=== PATIENT | female | born 1995 | race Caucasian/White ===

== ENCOUNTER 2019-08-29 06:49 | Emergency (ER) | payer BC ==
[2019-08-29] MEDS ORDERED: Ondansetron 4 MG/2 ML SDV IVPUSH ONE (07:29)
[2019-08-29] MEDS ORDERED: Sodium Chloride 0.9% 10 ML Syringe FLUSH PRN (07:29)
[2019-08-29] MEDS ORDERED: Sodium Chloride 0.9% 2,000 ML IV STA (07:29)
[2019-08-29] MEDS ORDERED: HYDROmorphone 0.5 MG/0.5 ML Syringe IVPUSH ONE (07:30)
[2019-08-29] MEDS ORDERED: Famotidine 20 MG/2 ML SDV IVPUSH ONE (07:31)
--- NOTE | 2019-08-29 08:59 | EDM.PDOC ---
ED HPI GENERAL MEDICAL PROBLEM - General Chief Complaint: Gastrointestinal Problem Stated Complaint: VOMITING BLOOD Time Seen by Provider: 08/29/19 07:19 Source of Information: Reports: Patient History Limitations: Reports: No Limitations - History of Present Illness INITIAL COMMENTS - FREE TEXT/NARRATIVE: The patient presents with nausea, vomiting, abdominal pain, and fever. This has been going on since yesterday. She says she cannot keep anything down. She also was vomiting up some blood this morning. She has been running a fever and having a cough. She has no eaten any bad food and she has not been around anyone who is sick. She still has her gallbladder and appendix. She does not think she is . She has some loose stools but not diarrhea. She has no dysuria. Onset: Gradual Duration: Day(s): (Yesterday) Location: Reports: Abdomen Quality: Reports: Sharp Severity: Moderate Improves with: Reports: None Worsens with: Reports: None Associated Symptoms: Reports: Cough, Fever/Chills, Nausea/Vomiting. Denies: Chest Pain, Headaches, Shortness of Breath Generalized Pain Score (Numeric/FACES): 8 - Related Data Allergies Allergy/AdvReac Type Severity Reaction Status Date / Time No Known Allergies Allergy Verified 08/29/19 07:17 Home Meds: Home Meds Ondansetron [Zofran ODT] 4 mg PO Q6H PRN #20 tab.dis 08/29/19 [Rx] ED ROS GENERAL - Review of Systems Review Of Systems: See Below Constitutional: Reports: Fever, Chills HEENT: Reports: No Symptoms Respiratory: Reports: Cough. Denies: Shortness of Breath Cardiovascular: Reports: No Symptoms Endocrine: Reports: No Symptoms GI/Abdominal: Reports: Abdominal Pain, Nausea, Vomiting. Denies: Diarrhea : Reports: No Symptoms Musculoskeletal: Reports: No Symptoms ED EXAM, GI/ABD - Physical Exam Exam: See Below Exam Limited By: No Limitations General Appearance: Alert, No Apparent Distress Ears: Normal External Exam Nose: Normal Inspection Head: Atraumatic, Normocephalic Neck: Normal Inspection Respiratory/Chest: No Respiratory Distress, Lungs Clear, Normal Breath Sounds Cardiovascular: Regular Rate, Rhythm, No Edema, No Murmur GI/Abdominal Exam: Soft, No Organomegaly, No Mass, Tender (Mild generalized pain upon palpation) Course - Vital Signs Last Recorded V/S: Last Vital Signs Temp 98.6 F 08/29/19 07:15 Pulse 103 H 08/29/19 07:15 Resp 16 08/29/19 07:15 BP 133/88 08/29/19 07:15 Pulse Ox 100 08/29/19 07:15 - Orders/Labs/Meds Orders: Active Orders 24 hr Category Date Time Status Peripheral IV Care [RC] . DIRECTED Care 08/29/19 07:30 Active CULTURE URINE [RM] Stat Lab 08/29/19 09:25 Received Sodium Chloride 0.9% [Saline Flush] Med 08/29/19 07:29 Active 10 ml FLUSH ASDIRECTED PRN ED Antiemetic Medication Reflex [OM.PC] Stat Oth 08/29/19 07:30 Ordered Peripheral IV Insertion Adult [OM.PC] Stat Oth 08/29/19 07:29 Ordered Medication Orders Sodium Chloride (Saline Flush) 10 ml FLUSH ASDIRECTED PRN PRN Reason: Keep Vein Open Last Admin: 08/29/19 08:11 Dose: 10 ml Labs: Laboratory Tests 08/29/19 08/29/19 08/29/19 Range/Units 07:40 07:40 07:40 WBC 4.25 (3.98-10.04) K/mm3 RBC 5.02 (3.98-5.22) M/mm3 Hgb 15.0 (11.2-15.7) gm/dl Hct 42.3 (34.1-44.9) % MCV 84.3 (79.4-94.8) fl MCH 29.9 (25.6-32.2) pg MCHC 35.5 (32.2-35.5) g/dl RDW Std Deviation 37.7 (36.4-46.3) fL Plt Count 294 (182-369) K/mm3 MPV 9.4 (9.4-12.3) fl Neut % (Auto) 70.0 (34.0-71.1) % Lymph % (Auto) 11.3 L (19.3-51.7) % Donley % (Auto) 16.0 H (4.7-12.5) % Eos % (Auto) 1.6 (0.7-5.8) Baso % (Auto) 0.9 (0.1-1.2) % Neut # (Auto) 2.97 (1.56-6.13) K/mm3 Lymph # (Auto) 0.48 L (1.18-3.74) K/mm3 Donley # (Auto) 0.68 H (0.24-0.36) K/mm3 Eos # (Auto) 0.07 (0.04-0.36) K/mm3 Baso # (Auto) 0.04 (0.01-0.08) K/mm3 Manual Slide Review Abnormal smear Sodium 139 (136-145) mEq/L Potassium 4.0 (3.5-5.1) mEq/L Chloride 103 (98-107) mEq/L Carbon Dioxide 24 (21-32) mEq/L Anion Gap 16.0 H (5-15) BUN 8 (7-18) mg/dL Creatinine 0.7 (0.55-1.02) mg/dL Est Cr Clr Drug Dosing 90.55 mL/min Estimated GFR (MDRD) > 60 (>60) mL/min BUN/Creatinine Ratio 11.4 L (14-18) Glucose 91 (74-106) mg/dL Calcium 9.3 (8.5-10.1) mg/dL Total Bilirubin 0.5 (0.2-1.0) mg/dL AST 17 (15-37) U/L ALT 49 (14-59) U/L Alkaline Phosphatase 80 (46-116) U/L Total Protein 7.8 (6.4-8.2) g/dl Albumin 4.4 (3.4-5.0) g/dl Globulin 3.4 gm/dL Albumin/Globulin Ratio 1.3 (1-2) Lipase 171 (73-393) U/L HCG, Qual Negative (NEGATIVE) Urine Color (Yellow) Urine Appearance (Clear) Urine pH (5.0-8.0) Ur Specific [place] (1.005-1.030) Urine Protein (Negative) Urine Glucose (UA) (Negative) Urine Ketones (Negative) Urine Occult Blood (Negative) Urine Nitrite (Negative) Urine Bilirubin (Negative) Urine Urobilinogen (0.2-1.0) Ur Leukocyte Esterase (Negative) Urine RBC (0-5) /hpf Urine WBC (0-5) /hpf Ur Squamous Epith Cells (0-5) /hpf Urine Bacteria (FEW) /hpf Urine Mucus (FEW) /hpf 08/29/19 Range/Units 09:25 WBC (3.98-10.04) K/mm3 RBC (3.98-5.22) M/mm3 Hgb (11.2-15.7) gm/dl Hct (34.1-44.9) % MCV (79.4-94.8) fl MCH (25.6-32.2) pg MCHC (32.2-35.5) g/dl RDW Std Deviation (36.4-46.3) fL Plt Count (182-369) K/mm3 MPV (9.4-12.3) fl Neut % (Auto) (34.0-71.1) % Lymph % (Auto) (19.3-51.7) % Donley % (Auto) (4.7-12.5) % Eos % (Auto) (0.7-5.8) Baso % (Auto) (0.1-1.2) % Neut # (Auto) (1.56-6.13) K/mm3 Lymph # (Auto) (1.18-3.74) K/mm3 Donley # (Auto) (0.24-0.36) K/mm3 Eos # (Auto) (0.04-0.36) K/mm3 Baso # (Auto) (0.01-0.08) K/mm3 Manual Slide Review Sodium (136-145) mEq/L Potassium (3.5-5.1) mEq/L Chloride (98-107) mEq/L Carbon Dioxide (21-32) mEq/L Anion Gap (5-15) BUN (7-18) mg/dL Creatinine (0.55-1.02) mg/dL Est Cr Clr Drug Dosing mL/min Estimated GFR (MDRD) (>60) mL/min BUN/Creatinine Ratio (14-18) Glucose (74-106) mg/dL Calcium (8.5-10.1) mg/dL Total Bilirubin (0.2-1.0) mg/dL AST (15-37) U/L ALT (14-59) U/L Alkaline Phosphatase (46-116) U/L Total Protein (6.4-8.2) g/dl Albumin (3.4-5.0) g/dl Globulin gm/dL Albumin/Globulin Ratio (1-2) Lipase (73-393) U/L HCG, Qual (NEGATIVE) Urine Color Yellow (Yellow) Urine Appearance Clear (Clear) Urine pH 7.0 (5.0-8.0) Ur Specific [place] 1.025 (1.005-1.030) Urine Protein Negative (Negative) Urine Glucose (UA) Negative (Negative) Urine Ketones 2+ H (Negative) Urine Occult Blood Negative (Negative) Urine Nitrite Positive H (Negative) Urine Bilirubin Negative (Negative) Urine Urobilinogen 1.0 (0.2-1.0) Ur Leukocyte Esterase Negative (Negative) Urine RBC 0-5 (0-5) /hpf Urine WBC 0-5 (0-5) /hpf Ur Squamous Epith Cells 0-5 (0-5) /hpf Urine Bacteria Many H (FEW) /hpf Urine Mucus Few (FEW) /hpf Meds: Medications Generic Name Dose Route Start Last Admin Trade Name Freq PRN Reason Stop Dose Admin Sodium Chloride 10 ml 08/29/19 07:29 08/29/19 08:11 Saline Flush FLUSH 10 ml ASDIRECTED PRN Administration Keep Vein Open Discontinued Medications Generic Name Dose Route Start Last Admin Trade Name Freq PRN Reason Stop Dose Admin Famotidine 20 mg 08/29/19 07:31 08/29/19 08:11 Pepcid IVPUSH 08/29/19 07:32 20 mg ONETIME ONE Administration Hydromorphone HCl 0.5 mg 08/29/19 07:30 08/29/19 08:14 Dilaudid IVPUSH 08/29/19 07:31 0.5 mg ONETIME ONE Administration Sodium Chloride 2,000 mls @ 1,000 mls/hr 08/29/19 07:29 08/29/19 08:09 Normal Saline IV 08/29/19 09:28 1,000 mls/hr .BOLUS STA Administration Ondansetron HCl 4 mg 08/29/19 07:29 08/29/19 08:09 Zofran IVPUSH 08/29/19 07:30 4 mg ONETIME ONE Administration - Re-Assessments/Exams Free Text/Narrative Re-Assessment/Exam: 08/29/19 08:58 I ordered an IV NS 2L bolus, zofran 4mg IV, dilaudid 0.5mg IV, labs, and UA. Her CBC looks good. Her anion gap was elevated at 16. Her lipase is normal. 08/29/19 09:58 Her HCG is negative. Her UA shows nitrites and bacteria. I will culture it and hold treatment. She has no dysuria. Her influenza is negative. Departure - Departure Time of Disposition: 10:45 Disposition: Home, Self-Care 01 Condition: Good Clinical Impression: Gastroenteritis, Vomiting - Discharge Information *PRESCRIPTION DRUG MONITORING PROGRAM REVIEWED*: Not Applicable *COPY OF PRESCRIPTION DRUG MONITORING REPORT IN PATIENT NATACHA: Not Applicable Prescriptions: Ondansetron [Zofran ODT] 4 mg PO Q6H PRN #20 tab.dis PRN Reason: Nausea\vomiting Referrals: PCP,None [Primary Care Provider] - Kathryn Marvin PA-C [Physician Division Field Inspector] - 1 Week Forms: ED Department Discharge Additional Instructions: Drink plenty of fluids. Take zofran every 6 hours as needed for nausea and vomiting. Advance your diet as tolerated. Please return if you are worse. Sepsis Event Note - Evaluation Sepsis Screening Result: No Definite Risk - Focused Exam Vital Signs: Vital Signs Temp Pulse Resp BP Pulse Ox 08/29/19 07:15 98.6 F 103 H 16 133/88 100 Date Exam was Performed: 08/29/19 Time Exam was Performed: 10:42 - My Orders Last 24 Hours: My Active Orders 08/29/19 07:29 Sodium Chloride 0.9% [Saline Flush] 10 ml FLUSH ASDIRECTED PRN Peripheral IV Insertion Adult [OM.PC] Stat 08/29/19 07:30 Peripheral IV Care [RC] . DIRECTED ED Antiemetic Medication Reflex [OM.PC] Stat 08/29/19 09:25 CULTURE URINE [RM] Stat - Assessment/Plan Last 24 Hours: My Active Orders 08/29/19 07:29 Sodium Chloride 0.9% [Saline Flush] 10 ml FLUSH ASDIRECTED PRN Peripheral IV Insertion Adult [OM.PC] Stat 08/29/19 07:30 Peripheral IV Care [RC] . DIRECTED ED Antiemetic Medication Reflex [OM.PC] Stat 08/29/19 09:25 CULTURE URINE [RM] Stat
== END 2019-08-29 10:52 | disposition home or self-care (01) ==
LOC: JD.ED 06:49
DX: K52.9 Noninfective gastroenteritis and colitis, unspecified (principal)
CPT/HCPCS: 36415; 80053; 81001; 83690; 84703; 85025; 87086; 87088; 87186; 87804; 96361; 96374; 96375; 99284; J1170; J2405; J3490; J7030; 99283

== ENCOUNTER 2019-09-01 14:43 | Observation (INO) | payer BC ==
[2019-09-01] MEDS ORDERED: Sodium Chloride 0.9% 10 ML Syringe FLUSH PRN (15:43)
[2019-09-01] MEDS ORDERED: Metoclopramide 10 MG/2 ML SDV IVPUSH ONE (15:43)
[2019-09-01] MEDS ORDERED: HYDROmorphone 0.5 MG/0.5 ML Syringe IVPUSH ONE (15:45)
[2019-09-01] MEDS: Sodium Chloride 0.9% 2,000 ML IV STA ×2 (15:56→17:45)
[2019-09-01] MEDS ORDERED: Iopamidol 612 MG/ML 100 ML Bottle IVPUSH ONE (15:59)
[2019-09-01] MEDS ORDERED: Sodium Chloride 0.9% 10 ML Syringe FLUSH ONE (15:59)
[2019-09-01] MEDS ORDERED: cefTRIAXone 2 GM in Sodium Chloride 0.9% 100 ML IV SCH (16:00)
--- NOTE | 2019-09-01 17:11 | CT ---
CT abdomen and pelvis Technique: Multiple axial sections were obtained from above the dome of the diaphragm inferiorly through the pubic symphysis. Intravenous contrast was utilized. No oral contrast was given due to emesis. Delayed images were also obtained through the abdomen and pelvis. Comparison: No previous abdominal imaging is available. Findings: Kidneys show symmetric contrast enhancement. No hydronephrosis or mass is seen. Delayed images shows contrast excretion into nondilated ureters and contrast within the bladder. Visualized lung bases show nothing acute. Liver contains no focal abnormality. Spleen appears within normal limits. Pancreas is within normal limits. Adrenal glands show no nodule. Aorta shows no aneurysm. Gallbladder contains no calcified gallstones. No retroperitoneal adenopathy or mesenteric abnormalities are seen. Appendix is seen and is normal in size. No pelvic mass or adenopathy is seen. Small amount of free fluid is noted within the cul-de-sac believed to be physiologic. No bowel dilatation is appreciated. Bone window settings were reviewed which appear within normal limits for the patient's age. Impression: 1. No abnormality is appreciated on CT study of the abdomen and pelvis. 2. IUD is noted. 3. Small amount of fluid within the cul-de-sac which is felt to be physiologic. Diagnostic code #2 This report was dictated in [place] Standard Time
--- NOTE | 2019-09-01 17:49 | EDM.PDOC ---
ED HPI GENERAL MEDICAL PROBLEM - General Chief Complaint: Gastrointestinal Problem Stated Complaint: VOMITING Time Seen by Provider: 09/01/19 15:24 Source of Information: Reports: Patient, Family History Limitations: Reports: No Limitations - History of Present Illness INITIAL COMMENTS - FREE TEXT/NARRATIVE: The patient presents again with nausea, vomiting and abdominal pain. This started a few days ago and she was seen here by myself. Her labs looked good and she did well with fluids and zofran. Her urine had some nitrites and a few bacteria. I did a culture and that came back today. It was growing out E-coli susceptible to all antibiotics. She came back today feeling worse. She still has vomiting and nausea and abdominal pain. She has some back pain also on the right side. She has no dysuria, hematuria or diarrhea. Her urine does look orange today. She has fever and chills. She also has some cough and congestion. Onset: Gradual Duration: Day(s): Location: Reports: Abdomen, Back Quality: Reports: Sharp Severity: Moderate Improves with: Reports: None Worsens with: Reports: None Associated Symptoms: Reports: Cough, Fever/Chills, Nausea/Vomiting. Denies: Chest Pain, Headaches, Shortness of Breath Lower Back Pain Score (Numeric/FACES): 9 - Related Data Allergies Allergy/AdvReac Type Severity Reaction Status Date / Time No Known Allergies Allergy Verified 09/01/19 15:17 Home Meds: Home Meds Ondansetron [Zofran ODT] 4 mg PO Q6H PRN #20 tab.dis 08/29/19 [Rx] Past Medical History - Past Health History Medical/Surgical History: Denies Medical/Surgical History Social & Family History - Tobacco Use Smoking Status *Q: Never Smoker - Caffeine Use Caffeine Use: Reports: None - Recreational Drug Use Recreational Drug Use: No ED ROS GENERAL - Review of Systems Review Of Systems: See Below Constitutional: Reports: No Symptoms HEENT: Reports: No Symptoms Respiratory: Reports: Cough. Denies: Shortness of Breath Cardiovascular: Reports: No Symptoms Endocrine: Reports: No Symptoms GI/Abdominal: Reports: Abdominal Pain, Nausea, Vomiting. Denies: Diarrhea : Reports: No Symptoms Musculoskeletal: Reports: No Symptoms Skin: Reports: No Symptoms Neurological: Reports: No Symptoms ED EXAM, GI/ABD - Physical Exam Exam: See Below Exam Limited By: No Limitations General Appearance: Alert, No Apparent Distress Ears: Normal External Exam Nose: Normal Inspection Head: Atraumatic, Normocephalic Neck: Normal Inspection Respiratory/Chest: No Respiratory Distress, Lungs Clear, Normal Breath Sounds Cardiovascular: Regular Rate, Rhythm, No Edema, No Murmur GI/Abdominal Exam: Soft, No Mass, Tender (Moderate generalized tenderness) Back Exam: CVA Tenderness (R) Extremities: Normal Inspection Neurological: Alert, Oriented, No Motor/Sensory Deficits Course - Vital Signs Last Recorded V/S: Last Vital Signs Temp 98.3 F 09/01/19 15:14 Pulse 87 09/01/19 15:14 Resp 18 09/01/19 15:14 BP 127/86 09/01/19 15:14 Pulse Ox 98 09/01/19 15:14 Orthostatic Blood Pressure [ 118/79 Standing] Orthostatic Blood Pressure [ 116/85 Sitting] Orthostatic Blood Pressure [ 119/75 Supine] - Orders/Labs/Meds Orders: Active Orders 24 hr Category Date Time Status Peripheral IV Care [RC] . DIRECTED Care 09/01/19 15:43 Active CULTURE BLOOD [BC] Stat Lab 09/01/19 15:45 Ordered CULTURE BLOOD [BC] Stat Lab 09/01/19 15:45 Ordered Sodium Chloride 0.9% [Saline Flush] Med 09/01/19 15:43 Active 10 ml FLUSH ASDIRECTED PRN cefTRIAXone [Rocephin] 2 gm Med 09/01/19 16:00 Active Sodium Chloride 0.9% [Normal Saline] 100 ml IV Q24H Blood Culture x2 Reflex Set [OM.PC] Stat Oth 09/01/19 15:45 Ordered ED Antiemetic Medication Reflex [OM.PC] Stat Oth 09/01/19 15:43 Ordered Peripheral IV Insertion Adult [OM.PC] Stat Oth 09/01/19 15:43 Ordered Medication Orders Ceftriaxone Sodium 2 gm/ (Sodium Chloride) 100 mls @ 200 mls/hr IV Q24H [facility] Last Admin: 09/01/19 16:51 Dose: 200 mls/hr Sodium Chloride (Saline Flush) 10 ml FLUSH ASDIRECTED PRN PRN Reason: Keep Vein Open Last Admin: 09/01/19 15:59 Dose: 10 ml Labs: Laboratory Tests 01/07/20 01/07/20 01/07/20 Range/Units 16:12 16:12 16:14 WBC 5.01 (3.98-10.04) K/mm3 RBC 5.33 H (3.98-5.22) M/mm3 Hgb 15.7 (11.2-15.7) gm/dl Hct 43.8 (34.1-44.9) % MCV 82.2 (79.4-94.8) fl MCH 29.5 (25.6-32.2) pg MCHC 35.8 H (32.2-35.5) g/dl RDW Std Deviation 36.9 (36.4-46.3) fL Plt Count 270 (182-369) K/mm3 MPV 9.8 (9.4-12.3) fl Neut % (Auto) 55.5 (34.0-71.1) % Lymph % (Auto) 27.1 (19.3-51.7) % Jay % (Auto) 16.6 H (4.7-12.5) % Eos % (Auto) 0.2 L (0.7-5.8) Baso % (Auto) 0.6 (0.1-1.2) % Neut # (Auto) 2.78 (1.56-6.13) K/mm3 Lymph # (Auto) 1.36 (1.18-3.74) K/mm3 Jay # (Auto) 0.83 H (0.24-0.36) K/mm3 Eos # (Auto) 0.01 L (0.04-0.36) K/mm3 Baso # (Auto) 0.03 (0.01-0.08) K/mm3 Manual Slide Review Abnormal smear Sodium 140 (136-145) mEq/L Potassium 3.5 (3.5-5.1) mEq/L Chloride 102 (98-107) mEq/L Carbon Dioxide 21 (21-32) mEq/L Anion Gap 20.5 H (5-15) BUN 9 (7-18) mg/dL Creatinine 0.7 (0.55-1.02) mg/dL Est Cr Clr Drug Dosing 90.55 mL/min Estimated GFR (MDRD) > 60 (>60) mL/min BUN/Creatinine Ratio 12.9 L (14-18) Glucose 71 L (74-106) mg/dL Lactic Acid 1.2 (0.4-2.0) mmol/L Calcium 9.1 (8.5-10.1) mg/dL Total Bilirubin 0.5 (0.2-1.0) mg/dL AST 16 (15-37) U/L ALT 33 (14-59) U/L Alkaline Phosphatase 73 (46-116) U/L Total Protein 8.1 (6.4-8.2) g/dl Albumin 4.5 (3.4-5.0) g/dl Globulin 3.6 gm/dL Albumin/Globulin Ratio 1.3 (1-2) Lipase 134 (73-393) U/L Meds: Medications Generic Name Dose Route Start Last Admin Trade Name Fremiguel PRN Reason Stop Dose Admin Ceftriaxone Sodium 2 gm/ 100 mls @ 200 mls/hr 09/01/19 16:00 09/01/19 16:51 Sodium Chloride IV 200 mls/hr Q24H KENDAL Administration Sodium Chloride 10 ml 09/01/19 15:43 09/01/19 15:59 Saline Flush FLUSH 10 ml ASDIRECTED PRN Administration Keep Vein Open Discontinued Medications Generic Name Dose Route Start Last Admin Trade Name Gem PRN Reason Stop Dose Admin Hydromorphone HCl 0.5 mg 09/01/19 15:45 09/01/19 15:58 Dilaudid IVPUSH 09/01/19 15:46 0.5 mg ONETIME ONE Administration Sodium Chloride 2,000 mls @ 1,000 mls/hr 09/01/19 15:43 09/01/19 17:45 Normal Saline IV 09/01/19 17:42 1,000 mls/hr .BOLUS STA Administration Iopamidol 100 ml 09/01/19 15:59 09/01/19 16:34 Isovue-300 (61%) IVPUSH 09/01/19 16:00 100 ml ONETIME ONE Administration Metoclopramide HCl 10 mg 09/01/19 15:43 09/01/19 15:57 Reglan IVPUSH 09/01/19 15:44 10 mg ONETIME ONE Administration Sodium Chloride 10 ml 09/01/19 15:59 09/01/19 16:34 Saline Flush FLUSH 09/01/19 16:00 10 ml ONETIME ONE Administration - Re-Assessments/Exams Free Text/Narrative Re-Assessment/Exam: 09/01/19 17:50 I ordered an IV NS 1L bolus, zofran 4mg IV, dilaudid 1mg IV, labs, UA and a CT of her abdomen and pelvis. Her CBC looks good. Her anion gap is elevated at 20.5. Her glucose is a little low at 71. Her lipase is normal. Her CT shows no abnormality is appreciated on CT study of the abdomen and pelvis. IUD in noted. Small amount of fluid within the cul-de-sac which is felt to be physiologic. 09/01/19 18:25 She feels a little better but she still cannot keep anything down. I thought she may have pyelonephritis but according to her WBC and CT she does not. I do not think she can go home like this. I called Dr Alonso and he agreed to the observation admission. Departure - Departure Time of Disposition: 18:30 Disposition: Refer to Observation Condition: Fair Clinical Impression: Abdominal pain, Dehydration UTI (urinary tract infection) Qualifiers: Urinary tract infection type: acute cystitis Hematuria presence: without hematuria Qualified Code(s): N30.00 - Acute cystitis without hematuria Nausea and vomiting Qualifiers: Vomiting type: unspecified Vomiting Intractability: non-intractable Qualified Code(s): R11.2 - Nausea with vomiting, unspecified - Discharge Information Referrals: PCP,None [Primary Care Provider] - Forms: ED Department Discharge Sepsis Event Note - Evaluation Sepsis Screening Result: No Definite Risk - Focused Exam Vital Signs: Vital Signs Temp Pulse Resp BP Pulse Ox 09/01/19 15:14 98.3 F 87 18 127/86 98 Date Exam was Performed: 09/01/19 Time Exam was Performed: 18:25 - My Orders Last 24 Hours: My Active Orders 09/01/19 15:43 Peripheral IV Care [RC] . DIRECTED Sodium Chloride 0.9% [Saline Flush] 10 ml FLUSH ASDIRECTED PRN ED Antiemetic Medication Reflex [OM.PC] Stat Peripheral IV Insertion Adult [OM.PC] Stat 09/01/19 15:45 CULTURE BLOOD [BC] Stat CULTURE BLOOD [BC] Stat Blood Culture x2 Reflex Set [OM.PC] Stat 09/01/19 16:00 cefTRIAXone [Rocephin] 2 gm Sodium Chloride 0.9% [Normal Saline] 100 ml IV Q24H - Assessment/Plan Last 24 Hours: My Active Orders 09/01/19 15:43 Peripheral IV Care [RC] . DIRECTED Sodium Chloride 0.9% [Saline Flush] 10 ml FLUSH ASDIRECTED PRN ED Antiemetic Medication Reflex [OM.PC] Stat Peripheral IV Insertion Adult [OM.PC] Stat 09/01/19 15:45 CULTURE BLOOD [BC] Stat CULTURE BLOOD [BC] Stat Blood Culture x2 Reflex Set [OM.PC] Stat 09/01/19 16:00 cefTRIAXone [Rocephin] 2 gm Sodium Chloride 0.9% [Normal Saline] 100 ml IV Q24H
--- NOTE | 2019-09-01 18:27 | PCM.HP.2 ---
H&P History of Present Illness - General Date of Service: 09/01/19 Admit Problem/Dx: Abdominal Pain with Nausea and Vomiting Source of Information: Patient, Old Records, Provider, RN Notes Reviewed History Limitations: Reports: No Limitations - History of Present Illness Initial Comments - Free Text/Narative: This is a healthy 24 yo white female who presented to ED with complaints of abdominal pain associated with nausea and vomiting. She was initially evaluated in ED a couple of days ago with benign work up and was diagnosed with dehydration and now UTI. She was treated with Zofran and discharged home. However she did not do well home. She comes back today with diffuse body aches, chills, as well as persisted nausea and vomiting. Her UA taken 2 days ago shows E. coli. Her initial work up in ED shows a fairly unremarkable CBC. Her Chemistry is significant for AG of 20.5, BS of 71, and CRP of 1.4. Lipase and LA are both wnl. Abdominal/Pelvis CT scan report read as no abnormality is appreciated. Patient received initial treatment in ED but she remains ill and weak. She is coming in for further management. Lower Back Pain Score (Numeric/FACES): 9 - Related Data Allergies/Adverse Reactions: Allergies Allergy/AdvReac Type Severity Reaction Status Date / Time No Known Allergies Allergy Verified 09/01/19 20:16 Home Medications: Home Meds Acetaminophen [Tylenol] 500 mg PO Q4HR PRN 09/01/19 [History] Ondansetron [Zofran ODT] 4 mg PO Q6H PRN #16 tab.dis 09/03/19 [Rx] cephALEXin [Keflex] 500 mg PO BID #2 cap 09/03/19 [Rx] Past Medical History - Past Health History Medical/Surgical History: Denies Medical/Surgical History Social & Family History - Tobacco Use Smoking Status *Q: Never Smoker - Caffeine Use Caffeine Use: Reports: None - Recreational Drug Use Recreational Drug Use: No H&P Review of Systems - Review of Systems: Review Of Systems: See Below General: Reports: Malaise, Weakness, Fatigue. Denies: Fever, Chills HEENT: Reports: No Symptoms Pulmonary: Reports: Cough. Denies: Shortness of Breath Cardiovascular: Denies: Chest Pain, Lightheadedness Gastrointestinal: Reports: Abdominal Pain, Nausea, Vomiting Genitourinary: Reports: No Symptoms Musculoskeletal: Reports: No Symptoms Skin: Reports: No Symptoms Psychiatric: Reports: No Symptoms Neurological: Denies: Numbness, Seizure, Syncope, Tingling, Trouble Speaking, Gait Disturbance Hematologic/Lymphatic: Reports: No Symptoms Immunologic: Reports: No Symptoms Exam - Exam Exam: See Below - Vital Signs Vital Signs: Last Vital Signs Temp 36.8 C 09/01/19 15:14 Pulse 87 09/01/19 15:14 Resp 18 09/01/19 15:14 BP 127/86 09/01/19 15:14 Pulse Ox 98 09/01/19 15:14 Orthostatic Blood Pressure [ 118/79 Standing] Orthostatic Blood Pressure [ 116/85 Sitting] Orthostatic Blood Pressure [ 119/75 Supine] Weight: 57.606 kg - Exam General: Alert, Oriented, Cooperative, Mild Distress HEENT: Conjunctiva Clear, EACs Clear, EOMI, Hearing Intact, Mucosa Moist & [place] , Nares Patent, Normal Nasal Septum, Posterior Pharynx Clear, Pupils Equal, Pupils Reactive, TMs Clear Neck: Supple, Trachea Midline, +2 Carotid Pulse wo Bruit Lungs: Clear to Auscultation, Normal Respiratory Effort Cardiovascular: Regular Rate, Regular Rhythm GI/Abdominal Exam: Normal Bowel Sounds, Soft, No Organomegaly, No Distention, No Abnormal Bruit, No Mass, Tender (Female) Exam: Deferred Rectal (Female) Exam: Deferred Back Exam: Normal Inspection, CVA Tenderness (R), Decreased Range of Motion Extremities: Normal Inspection, Normal Range of Motion, Non-Tender, No Pedal Edema, Normal Capillary Refill Peripheral Pulses: 2+: Posterior Tibial (L), Posterior Tibial (R), Dorsalis Pedis (L), Dorsalis Pedis (R) Skin: Warm, Dry, Intact Neuro Extensive - Mental Status: Oriented x3, Normal Cognition, Memory Intact Neuro Extensive - Motor, Sensory, Reflexes: CN II-XII Intact, Normal Gait Psychiatric: Alert, Normal Affect, Normal Mood - Patient Data Lab Results Last 24 hrs: Laboratory Results - last 24 hr 09/01/19 09/01/19 09/01/19 Range/Units 16:12 16:12 16:14 WBC 5.01 (3.98-10.04) K/mm3 RBC 5.33 H (3.98-5.22) M/mm3 Hgb 15.7 (11.2-15.7) gm/dl Hct 43.8 (34.1-44.9) % MCV 82.2 (79.4-94.8) fl MCH 29.5 (25.6-32.2) pg MCHC 35.8 H (32.2-35.5) g/dl RDW Std Deviation 36.9 (36.4-46.3) fL Plt Count 270 (182-369) K/mm3 MPV 9.8 (9.4-12.3) fl Neut % (Auto) 55.5 (34.0-71.1) % Lymph % (Auto) 27.1 (19.3-51.7) % Harper % (Auto) 16.6 H (4.7-12.5) % Eos % (Auto) 0.2 L (0.7-5.8) Baso % (Auto) 0.6 (0.1-1.2) % Neut # (Auto) 2.78 (1.56-6.13) K/mm3 Lymph # (Auto) 1.36 (1.18-3.74) K/mm3 Harper # (Auto) 0.83 H (0.24-0.36) K/mm3 Eos # (Auto) 0.01 L (0.04-0.36) K/mm3 Baso # (Auto) 0.03 (0.01-0.08) K/mm3 Manual Slide Review Abnormal smear Sodium 140 (136-145) mEq/L Potassium 3.5 (3.5-5.1) mEq/L Chloride 102 (98-107) mEq/L Carbon Dioxide 21 (21-32) mEq/L Anion Gap 20.5 H (5-15) BUN 9 (7-18) mg/dL Creatinine 0.7 (0.55-1.02) mg/dL Est Cr Clr Drug Dosing 90.55 mL/min Estimated GFR (MDRD) > 60 (>60) mL/min BUN/Creatinine Ratio 12.9 L (14-18) Glucose 71 L (74-106) mg/dL Lactic Acid 1.2 (0.4-2.0) mmol/L Calcium 9.1 (8.5-10.1) mg/dL Total Bilirubin 0.5 (0.2-1.0) mg/dL AST 16 (15-37) U/L ALT 33 (14-59) U/L Alkaline Phosphatase 73 (46-116) U/L Total Protein 8.1 (6.4-8.2) g/dl Albumin 4.5 (3.4-5.0) g/dl Globulin 3.6 gm/dL Albumin/Globulin Ratio 1.3 (1-2) Lipase 134 (73-393) U/L Result Diagrams: 09/03/19 05:13 09/03/19 05:13 Sepsis Event Note - Evaluation Sepsis Screening Result: No Definite Risk - Focused Exam Vital Signs: Vital Signs Temp Pulse Resp BP Pulse Ox 09/01/19 15:14 36.8 C 87 18 127/86 98 Date Exam was Performed: 09/03/19 Time Exam was Performed: 20:22 Problem List Initiated/Reviewed/Updated: Yes Orders Last 24hrs: Active Orders 24 hr Category Date Time Status Peripheral IV Care [RC] . DIRECTED Care 09/01/19 15:43 Active CULTURE BLOOD [BC] Stat Lab 09/01/19 15:45 Ordered CULTURE BLOOD [BC] Stat Lab 09/01/19 15:45 Ordered Sodium Chloride 0.9% [Saline Flush] Med 09/01/19 15:43 Active 10 ml FLUSH ASDIRECTED PRN cefTRIAXone [Rocephin] 2 gm Med 09/01/19 16:00 Active Sodium Chloride 0.9% [Normal Saline] 100 ml IV Q24H Blood Culture x2 Reflex Set [OM.PC] Stat Oth 09/01/19 15:45 Ordered ED Antiemetic Medication Reflex [OM.PC] Stat Oth 09/01/19 15:43 Ordered Peripheral IV Insertion Adult [OM.PC] Stat Oth 09/01/19 15:43 Ordered Medication Orders Ceftriaxone Sodium 2 gm/ (Sodium Chloride) 100 mls @ 200 mls/hr IV Q24H [facility] [place] Last Admin: 09/01/19 16:51 Dose: 200 mls/hr Sodium Chloride (Saline Flush) 10 ml FLUSH ASDIRECTED PRN PRN Reason: Keep Vein Open Last Admin: 09/01/19 15:59 Dose: 10 ml Assessment/Plan Comment:: Acute: Generalized Weakness. Likely 2/2 Diffuse body aches. Cannot r/o Viral Illness. Unspecified Viral Illness. Respiratory viral panel, Monospot, and supportive care. Hypoglycemia with BS of 71. Carries no hx/o diabetes or glucose intolerance. Likely from GI loss. Bacteriuria/UTI. UA from 2 days ago shows E. Coli. She received IV Rocephin in ED. Will start Keflex 500 mg po BID in AM for 3 days. Abdominal Pain with nausea and Vomiting. Could be 2/2 above but cannot r/o stomach flu. Plan: Anti-acids, clear liquid diet, Scopolamine Patch x1, and PRN anti-emetic agents. Plan: Admit for OBS. Routine AM labs. screening. IVF for hydration. PRN meds for symptomatic control. Monitor electrolytes abnormality. Fall precautions. Code status is full. - Mortality Measure Prognosis:: Good
[2019-09-01] MEDS ORDERED: Acetaminophen/HYDROcodone 325-5 MG Tab PO PRN (18:28)
[2019-09-01] MEDS ORDERED: HYDROmorphone 0.5 MG/0.5 ML Syringe IVPUSH PRN (18:28)
[2019-09-01] MEDS ORDERED: LORazepam 2 MG/ML SDV IV PRN (18:28)
[2019-09-01] MEDS ORDERED: Promethazine 6.25 MG in Sodium Chloride 0.9% 50 ML IV PRN (18:28)
[2019-09-01] MEDS ORDERED: Ketorolac 30 MG/ML SDV IV PRN (18:28)
[2019-09-01] MEDS ORDERED: Albuterol/Ipratropium 3.0-0.5 MG/3 ML Neb Soln NEB PRN (18:28)
[2019-09-01] MEDS ORDERED: Ondansetron 4 MG/2 ML SDV IV PRN (18:28)
[2019-09-01] MEDS ORDERED: Acetaminophen 325 MG Tab PO PRN (18:28)
[2019-09-01] MEDS ORDERED: Ibuprofen 600 MG Tab PO PRN (18:28)
[2019-09-01] MEDS ORDERED: Temazepam 15 MG Cap PO PRN (18:28)
[2019-09-01] MEDS ORDERED: Lactated Ringers 1,000 ML IV SCH (18:30)
[2019-09-01] MEDS ORDERED: Scopolamine 1.5 MG Transdermal Patch TRDERM ONE (18:35)
[2019-09-01] MEDS ORDERED: Metoclopramide 10 MG/2 ML SDV IVPUSH PRN (20:11)
[2019-09-01] MEDS ORDERED: FLU Vacc QS2019-20(6MOS+)/PF 60 MCG/0.5 ML SYRINGE IM ONE (20:45)
[2019-09-02] MEDS: Docusate Sodium 100 MG Cap PO PRN ×2 (07:25→18:39)
[2019-09-02] MEDS: Dextrose 5%-Lactated Ringers 1,000 ML IV SCH ×2 (07:25→21:03)
[2019-09-02] MEDS ORDERED: Magnesium Sulfate/Water 2 GM in Premix Bag 1 BAG IV ONE (08:00)
[2019-09-02] MEDS: Cephalexin 500 MG Cap PO SCH ×2 (08:39→21:13)
[2019-09-02] MEDS ORDERED: Bumetanide 1 MG/4 ML MDV IVPUSH ONE (09:03)
[2019-09-02] MEDS ORDERED: Potassium Chloride 20 MEQ Tab.ER PO ONE (09:03)
--- NOTE | 2019-09-02 14:35 | PCM.PN ---
- General Info Date of Service: 09/02/19 Admission Dx/Problem (Free Text): Abdominal Pain with Nausea and Vomiting Functional Status: Reports: Pain Controlled, Tolerating Diet, Ambulating, Urinating - Review of Systems General: Reports: Weakness, Fatigue, Malaise, Chills. Denies: Fever HEENT: Denies: Headaches, Sore Throat Pulmonary: Reports: Pleuritic Chest Pain, Cough. Denies: Shortness of Breath Cardiovascular: Reports: No Symptoms. Denies: Chest Pain, Palpitations Gastrointestinal: Reports: Abdominal Pain (left side of umbilicus ). Denies: Constipation, Diarrhea, Nausea, Vomiting Genitourinary: Reports: No Symptoms Musculoskeletal: Reports: Back Pain (worse with coughing ) Skin: Reports: No Symptoms Neurological: Reports: No Symptoms. Denies: Confusion, Pre-Existing Deficit, Difficulty Walking, Gait Disturbance - Patient Data Vitals - Most Recent: Last Vital Signs Temp 98.2 F 09/02/19 12:44 Pulse 64 09/02/19 12:44 Resp 20 09/02/19 12:44 BP 100/84 09/02/19 12:44 Pulse Ox 100 09/02/19 12:44 Orthostatic Blood Pressure [ 118/79 Standing] Orthostatic Blood Pressure [ 116/85 Sitting] Orthostatic Blood Pressure [ 119/75 Supine] Weight - Most Recent: 131 lb 12.8 oz I&O - Last 24 Hours: Intake & Output 09/01/19 09/02/19 09/02/19 22:59 06:59 14:59 Intake Total 120 532 320 Output Total 200 Balance 120 332 320 Lab Results Last 24 Hours: Laboratory Results - last 24 hr 09/01/19 09/01/19 09/01/19 Range/Units 16:12 16:12 16:12 WBC 5.01 (3.98-10.04) K/mm3 RBC 5.33 H (3.98-5.22) M/mm3 Hgb 15.7 (11.2-15.7) gm/dl Hct 43.8 (34.1-44.9) % MCV 82.2 (79.4-94.8) fl MCH 29.5 (25.6-32.2) pg MCHC 35.8 H (32.2-35.5) g/dl RDW Std Deviation 36.9 (36.4-46.3) fL Plt Count 270 (182-369) K/mm3 MPV 9.8 (9.4-12.3) fl Neut % (Auto) 55.5 (34.0-71.1) % Lymph % (Auto) 27.1 (19.3-51.7) % [place] % (Auto) 16.6 H (4.7-12.5) % Eos % (Auto) 0.2 L (0.7-5.8) Baso % (Auto) 0.6 (0.1-1.2) % Neut # (Auto) 2.78 (1.56-6.13) K/mm3 Lymph # (Auto) 1.36 (1.18-3.74) K/mm3 [place] # (Auto) 0.83 H (0.24-0.36) K/mm3 Eos # (Auto) 0.01 L (0.04-0.36) K/mm3 Baso # (Auto) 0.03 (0.01-0.08) K/mm3 Manual Slide Review Abnormal smear Sodium (136-145) mEq/L Potassium (3.5-5.1) mEq/L Chloride (98-107) mEq/L Carbon Dioxide (21-32) mEq/L Anion Gap (5-15) BUN (7-18) mg/dL Creatinine (0.55-1.02) mg/dL Est Cr Clr Drug Dosing mL/min Estimated GFR (MDRD) (>60) mL/min BUN/Creatinine Ratio (14-18) Glucose (74-106) mg/dL POC Glucose (70-105) mg/dL Lactic Acid 1.2 (0.4-2.0) mmol/L Calcium (8.5-10.1) mg/dL Magnesium (1.8-2.4) mg/dl Total Bilirubin (0.2-1.0) mg/dL AST (15-37) U/L ALT (14-59) U/L Alkaline Phosphatase (46-116) U/L C-Reactive Protein 1.4 H* (<1.0) mg/dL Total Protein (6.4-8.2) g/dl Albumin (3.4-5.0) g/dl Globulin gm/dL Albumin/Globulin Ratio (1-2) Lipase (73-393) U/L Urine Color (Yellow) Urine Appearance (Clear) Urine pH (5.0-8.0) Ur Specific [place] (1.005-1.030) Urine Protein (Negative) Urine Glucose (UA) (Negative) Urine Ketones (Negative) Urine Occult Blood (Negative) Urine Nitrite (Negative) Urine Bilirubin (Negative) Urine Urobilinogen (0.2-1.0) Ur Leukocyte Esterase (Negative) Urine RBC (0-5) /hpf Urine WBC (0-5) /hpf Ur Epithelial Cells (0-5) /hpf Urine Bacteria (FEW) /hpf Urine Mucus (FEW) /hpf Urine HCG, Qual (NEGATIVE) Monoscreen (NEGATIVE) 09/01/19 09/01/19 09/01/19 Range/Units 16:12 16:14 20:46 WBC (3.98-10.04) K/mm3 RBC (3.98-5.22) M/mm3 Hgb (11.2-15.7) gm/dl Hct (34.1-44.9) % MCV (79.4-94.8) fl MCH (25.6-32.2) pg MCHC (32.2-35.5) g/dl RDW Std Deviation (36.4-46.3) fL Plt Count (182-369) K/mm3 MPV (9.4-12.3) fl Neut % (Auto) (34.0-71.1) % Lymph % (Auto) (19.3-51.7) % [place] % (Auto) (4.7-12.5) % Eos % (Auto) (0.7-5.8) Baso % (Auto) (0.1-1.2) % Neut # (Auto) (1.56-6.13) K/mm3 Lymph # (Auto) (1.18-3.74) K/mm3 [place] # (Auto) (0.24-0.36) K/mm3 Eos # (Auto) (0.04-0.36) K/mm3 Baso # (Auto) (0.01-0.08) K/mm3 Manual Slide Review Sodium 140 (136-145) mEq/L Potassium 3.5 (3.5-5.1) mEq/L Chloride 102 (98-107) mEq/L Carbon Dioxide 21 (21-32) mEq/L Anion Gap 20.5 H (5-15) BUN 9 (7-18) mg/dL Creatinine 0.7 (0.55-1.02) mg/dL Est Cr Clr Drug Dosing 90.55 mL/min Estimated GFR (MDRD) > 60 (>60) mL/min BUN/Creatinine Ratio 12.9 L (14-18) Glucose 71 L (74-106) mg/dL POC Glucose 72 (70-105) mg/dL Lactic Acid (0.4-2.0) mmol/L Calcium 9.1 (8.5-10.1) mg/dL Magnesium (1.8-2.4) mg/dl Total Bilirubin 0.5 (0.2-1.0) mg/dL AST 16 (15-37) U/L ALT 33 (14-59) U/L Alkaline Phosphatase 73 (46-116) U/L C-Reactive Protein (<1.0) mg/dL Total Protein 8.1 (6.4-8.2) g/dl Albumin 4.5 (3.4-5.0) g/dl Globulin 3.6 gm/dL Albumin/Globulin Ratio 1.3 (1-2) Lipase 134 (73-393) U/L Urine Color (Yellow) Urine Appearance (Clear) Urine pH (5.0-8.0) Ur Specific [place] (1.005-1.030) Urine Protein (Negative) Urine Glucose (UA) (Negative) Urine Ketones (Negative) Urine Occult Blood (Negative) Urine Nitrite (Negative) Urine Bilirubin (Negative) Urine Urobilinogen (0.2-1.0) Ur Leukocyte Esterase (Negative) Urine RBC (0-5) /hpf Urine WBC (0-5) /hpf Ur Epithelial Cells (0-5) /hpf Urine Bacteria (FEW) /hpf Urine Mucus (FEW) /hpf Urine HCG, Qual (NEGATIVE) Monoscreen Negative (NEGATIVE) 09/01/19 09/01/19 09/02/19 Range/Units 20:50 21:01 05:40 WBC 2.48 L* (3.98-10.04) K/mm3 RBC 4.57 (3.98-5.22) M/mm3 Hgb 13.4 D (11.2-15.7) gm/dl Hct 37.9 (34.1-44.9) % MCV 82.9 (79.4-94.8) fl MCH 29.3 (25.6-32.2) pg MCHC 35.4 (32.2-35.5) g/dl RDW Std Deviation 36.8 (36.4-46.3) fL Plt Count 219 (182-369) K/mm3 MPV 9.5 (9.4-12.3) fl Neut % (Auto) 27.9 L (34.0-71.1) % Lymph % (Auto) 52.0 H (19.3-51.7) % [place] % (Auto) 17.7 H (4.7-12.5) % Eos % (Auto) 1.6 (0.7-5.8) Baso % (Auto) 0.8 (0.1-1.2) % Neut # (Auto) 0.69 L (1.56-6.13) K/mm3 Lymph # (Auto) 1.29 (1.18-3.74) K/mm3 [place] # (Auto) 0.44 H (0.24-0.36) K/mm3 Eos # (Auto) 0.04 (0.04-0.36) K/mm3 Baso # (Auto) 0.02 (0.01-0.08) K/mm3 Manual Slide Review Sodium (136-145) mEq/L Potassium (3.5-5.1) mEq/L Chloride (98-107) mEq/L Carbon Dioxide (21-32) mEq/L Anion Gap (5-15) BUN (7-18) mg/dL Creatinine (0.55-1.02) mg/dL Est Cr Clr Drug Dosing mL/min Estimated GFR (MDRD) (>60) mL/min BUN/Creatinine Ratio (14-18) Glucose (74-106) mg/dL POC Glucose (70-105) mg/dL Lactic Acid (0.4-2.0) mmol/L Calcium (8.5-10.1) mg/dL Magnesium (1.8-2.4) mg/dl Total Bilirubin (0.2-1.0) mg/dL AST (15-37) U/L ALT (14-59) U/L Alkaline Phosphatase (46-116) U/L C-Reactive Protein (<1.0) mg/dL Total Protein (6.4-8.2) g/dl Albumin (3.4-5.0) g/dl Globulin gm/dL Albumin/Globulin Ratio (1-2) Lipase (73-393) U/L Urine Color Yellow (Yellow) Urine Appearance Clear (Clear) Urine pH 6.0 (5.0-8.0) Ur Specific [place] 1.025 (1.005-1.030) Urine Protein Negative (Negative) Urine Glucose (UA) Negative (Negative) Urine Ketones 4+ H (Negative) Urine Occult Blood Negative (Negative) Urine Nitrite Negative (Negative) Urine Bilirubin Negative (Negative) Urine Urobilinogen 0.2 (0.2-1.0) Ur Leukocyte Esterase Negative (Negative) Urine RBC 0-5 (0-5) /hpf Urine WBC 0-5 (0-5) /hpf Ur Epithelial Cells 10-20 H (0-5) /hpf Urine Bacteria Many H (FEW) /hpf Urine Mucus Moderate H (FEW) /hpf Urine HCG, Qual Negative (NEGATIVE) Monoscreen (NEGATIVE) 09/02/19 09/02/19 09/02/19 Range/Units 05:40 07:05 09:00 WBC 2.47 L* (3.98-10.04) K/mm3 RBC 4.71 (3.98-5.22) M/mm3 Hgb 13.9 (11.2-15.7) gm/dl Hct 38.8 (34.1-44.9) % MCV 82.4 (79.4-94.8) fl MCH 29.5 (25.6-32.2) pg MCHC 35.8 H (32.2-35.5) g/dl RDW Std Deviation 36.7 (36.4-46.3) fL Plt Count 231 (182-369) K/mm3 MPV 9.4 (9.4-12.3) fl Neut % (Auto) 26.3 L (34.0-71.1) % Lymph % (Auto) 54.7 H (19.3-51.7) % [place] % (Auto) 15.4 H (4.7-12.5) % Eos % (Auto) 1.6 (0.7-5.8) Baso % (Auto) 2.0 H (0.1-1.2) % Neut # (Auto) 0.65 L (1.56-6.13) K/mm3 Lymph # (Auto) 1.35 (1.18-3.74) K/mm3 [place] # (Auto) 0.38 H (0.24-0.36) K/mm3 Eos # (Auto) 0.04 (0.04-0.36) K/mm3 Baso # (Auto) 0.05 (0.01-0.08) K/mm3 Manual Slide Review Abnormal smear Sodium 139 (136-145) mEq/L Potassium 3.5 (3.5-5.1) mEq/L Chloride 105 (98-107) mEq/L Carbon Dioxide 20 L (21-32) mEq/L Anion Gap 17.5 H (5-15) BUN 7 (7-18) mg/dL Creatinine 0.6 (0.55-1.02) mg/dL Est Cr Clr Drug Dosing 105.64 mL/min Estimated GFR (MDRD) > 60 (>60) mL/min BUN/Creatinine Ratio 11.7 L (14-18) Glucose 82 (74-106) mg/dL POC Glucose 69 L (70-105) mg/dL Lactic Acid (0.4-2.0) mmol/L Calcium 8.3 L (8.5-10.1) mg/dL Magnesium 1.5 L (1.8-2.4) mg/dl Total Bilirubin (0.2-1.0) mg/dL AST (15-37) U/L ALT (14-59) U/L Alkaline Phosphatase (46-116) U/L C-Reactive Protein 1.4 H* (<1.0) mg/dL Total Protein (6.4-8.2) g/dl Albumin (3.4-5.0) g/dl Globulin gm/dL Albumin/Globulin Ratio (1-2) Lipase (73-393) U/L Urine Color (Yellow) Urine Appearance (Clear) Urine pH (5.0-8.0) Ur Specific [place] (1.005-1.030) Urine Protein (Negative) Urine Glucose (UA) (Negative) Urine Ketones (Negative) Urine Occult Blood (Negative) Urine Nitrite (Negative) Urine Bilirubin (Negative) Urine Urobilinogen (0.2-1.0) Ur Leukocyte Esterase (Negative) Urine RBC (0-5) /hpf Urine WBC (0-5) /hpf Ur Epithelial Cells (0-5) /hpf Urine Bacteria (FEW) /hpf Urine Mucus (FEW) /hpf Urine HCG, Qual (NEGATIVE) Monoscreen (NEGATIVE) 09/02/19 Range/Units 12:57 WBC (3.98-10.04) K/mm3 RBC (3.98-5.22) M/mm3 Hgb (11.2-15.7) gm/dl Hct (34.1-44.9) % MCV (79.4-94.8) fl MCH (25.6-32.2) pg MCHC (32.2-35.5) g/dl RDW Std Deviation (36.4-46.3) fL Plt Count (182-369) K/mm3 MPV (9.4-12.3) fl Neut % (Auto) (34.0-71.1) % Lymph % (Auto) (19.3-51.7) % [place] % (Auto) (4.7-12.5) % Eos % (Auto) (0.7-5.8) Baso % (Auto) (0.1-1.2) % Neut # (Auto) (1.56-6.13) K/mm3 Lymph # (Auto) (1.18-3.74) K/mm3 [place] # (Auto) (0.24-0.36) K/mm3 Eos # (Auto) (0.04-0.36) K/mm3 Baso # (Auto) (0.01-0.08) K/mm3 Manual Slide Review Sodium (136-145) mEq/L Potassium (3.5-5.1) mEq/L Chloride (98-107) mEq/L Carbon Dioxide (21-32) mEq/L Anion Gap (5-15) BUN (7-18) mg/dL Creatinine (0.55-1.02) mg/dL Est Cr Clr Drug Dosing mL/min Estimated GFR (MDRD) (>60) mL/min BUN/Creatinine Ratio (14-18) Glucose (74-106) mg/dL POC Glucose 92 (70-105) mg/dL Lactic Acid (0.4-2.0) mmol/L Calcium (8.5-10.1) mg/dL Magnesium (1.8-2.4) mg/dl Total Bilirubin (0.2-1.0) mg/dL AST (15-37) U/L ALT (14-59) U/L Alkaline Phosphatase (46-116) U/L C-Reactive Protein (<1.0) mg/dL Total Protein (6.4-8.2) g/dl Albumin (3.4-5.0) g/dl Globulin gm/dL Albumin/Globulin Ratio (1-2) Lipase (73-393) U/L Urine Color (Yellow) Urine Appearance (Clear) Urine pH (5.0-8.0) Ur Specific [place] (1.005-1.030) Urine Protein (Negative) Urine Glucose (UA) (Negative) Urine Ketones (Negative) Urine Occult Blood (Negative) Urine Nitrite (Negative) Urine Bilirubin (Negative) Urine Urobilinogen (0.2-1.0) Ur Leukocyte Esterase (Negative) Urine RBC (0-5) /hpf Urine WBC (0-5) /hpf Ur Epithelial Cells (0-5) /hpf Urine Bacteria (FEW) /hpf Urine Mucus (FEW) /hpf Urine HCG, Qual (NEGATIVE) Monoscreen (NEGATIVE) Jermaine Results Last 24 Hours: Microbiology 09/01/19 20:15 Quick Strep Confirmation Culture - Preliminary Throat Group A Streptococcus Rapid Screen - Final NEGATIVE STREP A SCREEN REFERENCE RANGE: NEGATIVE Med Orders - Current: Current Medications Acetaminophen (Tylenol) 650 mg PO Q4H PRN PRN Reason: Pain (Mild 1-3)/fever Hydrocodone Bitart/Acetaminophen ([place] 325-5 Mg) 1 tab PO Q4H PRN PRN Reason: Pain (moderate 4-6) Albuterol/Ipratropium (Duoneb 3.0-0.5 Mg/3 Ml) 3 ml NEB Q4H PRN PRN Reason: Shortness Of Breath/wheezing Cephalexin (Keflex) 500 mg PO BID KENDAL Stop: 09/05/19 09:01 Last Admin: 09/02/19 08:39 Dose: 500 mg Docusate Sodium (Colace) 100 mg PO BID PRN PRN Reason: Constipation Last Admin: 09/02/19 07:25 Dose: 100 mg Hydromorphone HCl (Dilaudid) 0.25 mg IVPUSH Q2H PRN PRN Reason: Pain (severe 7-10) Promethazine HCl 6.25 mg/ (Sodium Chloride) 50.25 mls @ 100 mls/hr IV Q6H PRN PRN Reason: Nausea/Vomiting Dextrose/Lactated Ringer's (Dextrose 5%-Lactated Ringers) 1,000 mls @ 75 mls/ hr IV ASDIRECTED KENDAL Stop: 09/02/19 20:34 Last Admin: 09/02/19 07:25 Dose: 75 mls/hr Ibuprofen (Motrin) 600 mg PO Q6H PRN PRN Reason: Pain (moderate 4-6) Ketorolac Tromethamine (Toradol) 30 mg IV Q6H PRN PRN Reason: Pain (moderate 4-6) Last Admin: 09/01/19 20:09 Dose: 30 mg Lorazepam (Ativan) 1 mg IV Q6H PRN PRN Reason: Nausea/Vomiting Last Admin: 09/01/19 20:42 Dose: 1 mg Metoclopramide HCl (Reglan) 10 mg IVPUSH Q6H PRN PRN Reason: Nausea Last Admin: 09/01/19 20:52 Dose: 10 mg Miscellaneous Information (Remove Patch) 1 ea TRDERM Q72H [facility] Ondansetron HCl (Zofran) 4 mg IV Q6H PRN PRN Reason: Nausea/Vomiting Sodium Chloride (Saline Flush) 10 ml FLUSH ASDIRECTED PRN PRN Reason: Keep Vein Open Last Admin: 09/01/19 15:59 Dose: 10 ml Temazepam (Restoril) 15 mg PO BEDTIME PRN PRN Reason: Sleep Last Admin: 09/01/19 20:42 Dose: 15 mg Discontinued Medications Hydromorphone HCl (Dilaudid) 0.5 mg IVPUSH ONETIME ONE Stop: 09/01/19 15:46 Last Admin: 09/01/19 15:58 Dose: 0.5 mg Ceftriaxone Sodium 2 gm/ (Sodium Chloride) 100 mls @ 200 mls/hr IV Q24H [facility] Last Admin: 09/01/19 16:51 Dose: 200 mls/hr Sodium Chloride (Normal Saline) 2,000 mls @ 1,000 mls/hr IV .BOLUS STA Stop: 09/01/19 17:42 Last Admin: 09/01/19 17:45 Dose: 1,000 mls/hr Lactated Ringer's (Ringers, Lactated) 1,000 mls @ 50 mls/hr IV ASDIRECTED KENDAL Stop: 09/02/19 14:29 Last Admin: 09/01/19 20:08 Dose: 50 mls/hr Magnesium Sulfate 2 gm/ Premix 50 mls @ 25 mls/hr IV ONETIME ONE Stop: 09/02/19 09:59 Last Admin: 09/02/19 08:39 Dose: 25 mls/hr Influenza Virus Vaccine (Pharmacy To Dose - Influenza Vaccine) 1 each IM ONETIME ONE Stop: 09/01/19 20:23 Influenza Virus Vaccine (Fluzone Quad [id number] Syringe) 60 mcg IM .ONCE ONE Stop: 09/01/19 20:46 Iopamidol (Isovue-300 (61%)) 100 ml IVPUSH ONETIME ONE Stop: 09/01/19 16:00 Last Admin: 09/01/19 16:34 Dose: 100 ml Metoclopramide HCl (Reglan) 10 mg IVPUSH ONETIME ONE Stop: 09/01/19 15:44 Last Admin: 09/01/19 15:57 Dose: 10 mg Scopolamine (Transderm-Scop) 1.5 mg TRDERM Q72H ONE Stop: 09/01/19 18:36 Last Admin: 09/01/19 20:08 Dose: 1.5 mg Sodium Chloride (Saline Flush) 10 ml FLUSH ONETIME ONE Stop: 09/01/19 16:00 Last Admin: 09/01/19 16:34 Dose: 10 ml - Exam Quality Assessment: DVT Prophylaxis General: Alert, Oriented, Cooperative, Mild Distress (looks ill) HEENT: Pupils Equal, Pupils Reactive, Mucous Membr. Moist/[place] Neck: Supple, Trachea Midline Lungs: Clear to Auscultation, Normal Respiratory Effort Cardiovascular: Regular Rate, Regular Rhythm GI/Abdominal Exam: Normal Bowel Sounds, Soft, No Distention, Tender (mild - Left side of umbilicus ), Abnormal Bowel Sounds (hyperactive ) (Female) Exam: Deferred Back Exam: Normal Inspection, Full Range of Motion Extremities: Normal Inspection, Normal Range of Motion, Non-Tender, No Pedal Edema, Normal Capillary Refill Skin: Warm, Dry, Intact Neurological: No New Focal Deficit Psy/Mental Status: Alert, Normal Affect, Normal Mood Sepsis Event Note - Evaluation Sepsis Screening Result: No Definite Risk - Focused Exam Vital Signs: Vital Signs Temp Pulse Resp BP Pulse Ox 09/02/19 12:44 98.2 F 64 20 100/84 100 09/02/19 08:40 98.4 F 79 20 109/59 L 98 09/02/19 04:28 99.1 F 71 16 103/55 L 99 Date Exam was Performed: 09/02/19 Time Exam was Performed: 15:51 - Problem List & Annotations (1) Hypomagnesemia SNOMED Code(s): 070666761 Code(s): E83.42 - HYPOMAGNESEMIA Status: Acute Priority: High Current Visit: Yes (2) Abdominal pain SNOMED Code(s): 90659635 Code(s): R10.9 - UNSPECIFIED ABDOMINAL PAIN Status: Acute Priority: High Current Visit: Yes (3) Dehydration SNOMED Code(s): 24271661 Code(s): E86.0 - DEHYDRATION Status: Acute Priority: High Current Visit : Yes (4) Nausea and vomiting SNOMED Code(s): 69484250 Code(s): R11.2 - NAUSEA WITH VOMITING, UNSPECIFIED Status: Acute Priority : High Current Visit: Yes Qualifiers: Vomiting type: unspecified Vomiting Intractability: non-intractable Qualified Code(s): R11.2 - Nausea with vomiting, unspecified (5) UTI (urinary tract infection) SNOMED Code(s): 06103049 Code(s): N39.0 - URINARY TRACT INFECTION, SITE NOT SPECIFIED Status: Acute Priority: High Current Visit: Yes Qualifiers: Urinary tract infection type: acute cystitis Hematuria presence: without hematuria Qualified Code(s): N30.00 - Acute cystitis without hematuria (6) Weakness SNOMED Code(s): 07744164 Code(s): R53.1 - WEAKNESS Status: Acute Priority: High Current Visit: Yes (7) Viral infection SNOMED Code(s): 31986169 Code(s): B34.9 - VIRAL INFECTION, UNSPECIFIED Status: Acute Priority: High Current Visit: Yes - Problem List Review Problem List Initiated/Reviewed/Updated: Yes - My Orders Last 24 Hours: My Active Orders 09/02/19 07:08 Docusate Sodium [Colace] 100 mg PO BID PRN 09/02/19 07:15 Dextrose 5%-Lactated Ringers 1,000 ml IV ASDIRECTED - Plan Plan:: Acute: Generalized Weakness. Likely 2/2 Diffuse body aches. Cannot r/o Viral Illness. Unspecified Viral Illness. Respiratory viral panel, Strep (negative) Monospot ( negative), and supportive care. Hypoglycemia with BS of 71. Carries no hx/o diabetes or glucose intolerance. Likely from GI loss. Start D5LR Bacteriuria/UTI. UA from 2 days ago shows E. Coli. She received IV Rocephin in ED. Will start Keflex 500 mg po BID in AM for 3 days. Abdominal Pain with nausea and Vomiting. Could be 2/2 above but cannot r/o stomach flu. Plan: Anti-acids, clear liquid diet, Scopolamine Patch x1, and PRN anti-emetic agents. Plan: Admit for OBS. Routine AM labs. screening (negative). IVF for hydration. PRN meds for symptomatic control. Monitor electrolytes abnormality. Fall precautions. Code status is full.
[2019-09-02] MEDS ORDERED: Benzocaine/Cetylpyridinium/Menthol Lozenge MUCMEM PRN (18:24)
[2019-09-03 04:46] LABS: BORDETELLA PARAPERT IS1001 Not Detected (Not Detected)
[2019-09-03] MEDS ORDERED: Potassium Chloride 20 MEQ Tab.ER PO ONE (07:01)
--- NOTE | 2019-09-03 08:22 | PCM.PN ---
- General Info Date of Service: 09/03/19 Admission Dx/Problem (Free Text): Abdominal Pain with Nausea and Vomiting - Patient Data Vitals - Most Recent: Last Vital Signs Temp 97.3 F 09/03/19 05:27 Pulse 64 09/03/19 05:27 Resp 16 09/03/19 05:27 BP 95/56 L 09/03/19 05:27 Pulse Ox 100 09/03/19 05:27 Orthostatic Blood Pressure [ 118/79 Standing] Orthostatic Blood Pressure [ 116/85 Sitting] Orthostatic Blood Pressure [ 119/75 Supine] Weight - Most Recent: 133 lb 4.8 oz I&O - Last 24 Hours: Intake & Output 09/02/19 09/03/19 09/03/19 22:59 06:59 14:59 Intake Total 1376 1100 Output Total 1200 Balance 176 1100 Lab Results Last 24 Hours: Laboratory Results - last 24 hr 09/01/19 09/02/19 09/02/19 Range/Units 20:15 05:40 09:00 WBC 2.47 L* (3.98-10.04) K/mm3 RBC 4.71 (3.98-5.22) M/mm3 Hgb 13.9 (11.2-15.7) gm/dl Hct 38.8 (34.1-44.9) % MCV 82.4 (79.4-94.8) fl MCH 29.5 (25.6-32.2) pg MCHC 35.8 H (32.2-35.5) g/dl RDW Std Deviation 36.7 (36.4-46.3) fL Plt Count 231 (182-369) K/mm3 MPV 9.4 (9.4-12.3) fl Neut % (Auto) 26.3 L (34.0-71.1) % Lymph % (Auto) 54.7 H (19.3-51.7) % [place] % (Auto) 15.4 H (4.7-12.5) % Eos % (Auto) 1.6 (0.7-5.8) Baso % (Auto) 2.0 H (0.1-1.2) % Neut # (Auto) 0.65 L (1.56-6.13) K/mm3 Lymph # (Auto) 1.35 (1.18-3.74) K/mm3 [place] # (Auto) 0.38 H (0.24-0.36) K/mm3 Eos # (Auto) 0.04 (0.04-0.36) K/mm3 Baso # (Auto) 0.05 (0.01-0.08) K/mm3 Manual Slide Review Abnormal smear Sodium (136-145) mEq/L Potassium (3.5-5.1) mEq/L Chloride (98-107) mEq/L Carbon Dioxide (21-32) mEq/L Anion Gap (5-15) BUN (7-18) mg/dL Creatinine (0.55-1.02) mg/dL Est Cr Clr Drug Dosing mL/min Estimated GFR (MDRD) (>60) mL/min BUN/Creatinine Ratio (14-18) Glucose (74-106) mg/dL POC Glucose (70-105) mg/dL Calcium (8.5-10.1) mg/dL Magnesium (1.8-2.4) mg/dl C-Reactive Protein (<1.0) mg/dL Adenovirus (PCR) Not detected (Not Detected) B. pertussis DNA (PCR) Not detected (Not Detected) B.parapertussis DNA PCR Not detected (Not Detected) C. pneumoniae DNA (PCR) Not detected (Not Detected) Coronavirus (PCR) Not detected (Not Detected) Human Metapneumovir PCR Not detected (Not Detected) Influenza A (RT-PCR) Not detected (Not Detected) Influenza B (RT-PCR) Detected H (Not Detected) M. pneumoniae (PCR) Not detected (Not Detected) Parainfluen 1,2,3,4 PCR Not detected (Not Detected) RSV (PCR) Not detected (Not Detected) Entero/Rhino (PCR) Not detected (Not Detected) 09/02/19 09/02/19 09/03/19 Range/Units 12:57 18:20 00:33 WBC (3.98-10.04) K/mm3 RBC (3.98-5.22) M/mm3 Hgb (11.2-15.7) gm/dl Hct (34.1-44.9) % MCV (79.4-94.8) fl MCH (25.6-32.2) pg MCHC (32.2-35.5) g/dl RDW Std Deviation (36.4-46.3) fL Plt Count (182-369) K/mm3 MPV (9.4-12.3) fl Neut % (Auto) (34.0-71.1) % Lymph % (Auto) (19.3-51.7) % [place] % (Auto) (4.7-12.5) % Eos % (Auto) (0.7-5.8) Baso % (Auto) (0.1-1.2) % Neut # (Auto) (1.56-6.13) K/mm3 Lymph # (Auto) (1.18-3.74) K/mm3 [place] # (Auto) (0.24-0.36) K/mm3 Eos # (Auto) (0.04-0.36) K/mm3 Baso # (Auto) (0.01-0.08) K/mm3 Manual Slide Review Sodium (136-145) mEq/L Potassium (3.5-5.1) mEq/L Chloride (98-107) mEq/L Carbon Dioxide (21-32) mEq/L Anion Gap (5-15) BUN (7-18) mg/dL Creatinine (0.55-1.02) mg/dL Est Cr Clr Drug Dosing mL/min Estimated GFR (MDRD) (>60) mL/min BUN/Creatinine Ratio (14-18) Glucose (74-106) mg/dL POC Glucose 92 178 H 96 (70-105) mg/dL Calcium (8.5-10.1) mg/dL Magnesium (1.8-2.4) mg/dl C-Reactive Protein (<1.0) mg/dL Adenovirus (PCR) (Not Detected) B. pertussis DNA (PCR) (Not Detected) B.parapertussis DNA PCR (Not Detected) C. pneumoniae DNA (PCR) (Not Detected) Coronavirus (PCR) (Not Detected) Human Metapneumovir PCR (Not Detected) Influenza A (RT-PCR) (Not Detected) Influenza B (RT-PCR) (Not Detected) M. pneumoniae (PCR) (Not Detected) Parainfluen 1,2,3,4 PCR (Not Detected) RSV (PCR) (Not Detected) Entero/Rhino (PCR) (Not Detected) 09/03/19 09/03/19 09/03/19 Range/Units 05:13 05:13 06:16 WBC 3.16 L (3.98-10.04) K/mm3 RBC 4.50 (3.98-5.22) M/mm3 Hgb 13.2 (11.2-15.7) gm/dl Hct 37.4 (34.1-44.9) % MCV 83.1 (79.4-94.8) fl MCH 29.3 (25.6-32.2) pg MCHC 35.3 (32.2-35.5) g/dl RDW Std Deviation 36.9 (36.4-46.3) fL Plt Count 219 (182-369) K/mm3 MPV 9.9 (9.4-12.3) fl Neut % (Auto) 14.3 L (34.0-71.1) % Lymph % (Auto) 69.3 H (19.3-51.7) % [place] % (Auto) 13.0 H (4.7-12.5) % Eos % (Auto) 2.5 (0.7-5.8) Baso % (Auto) 0.9 (0.1-1.2) % Neut # (Auto) 0.45 L (1.56-6.13) K/mm3 Lymph # (Auto) 2.19 (1.18-3.74) K/mm3 [place] # (Auto) 0.41 H (0.24-0.36) K/mm3 Eos # (Auto) 0.08 (0.04-0.36) K/mm3 Baso # (Auto) 0.03 (0.01-0.08) K/mm3 Manual Slide Review Sodium 141 (136-145) mEq/L Potassium 3.2 L (3.5-5.1) mEq/L Chloride 107 (98-107) mEq/L Carbon Dioxide 26 (21-32) mEq/L Anion Gap 11.2 (5-15) BUN 5 L (7-18) mg/dL Creatinine 0.7 (0.55-1.02) mg/dL Est Cr Clr Drug Dosing 90.55 mL/min Estimated GFR (MDRD) > 60 (>60) mL/min BUN/Creatinine Ratio 7.1 L (14-18) Glucose 111 H (74-106) mg/dL POC Glucose 101 (70-105) mg/dL Calcium 8.4 L (8.5-10.1) mg/dL Magnesium 1.8 (1.8-2.4) mg/dl C-Reactive Protein 1.0 (<1.0) mg/dL Adenovirus (PCR) (Not Detected) B. pertussis DNA (PCR) (Not Detected) B.parapertussis DNA PCR (Not Detected) C. pneumoniae DNA (PCR) (Not Detected) Coronavirus (PCR) (Not Detected) Human Metapneumovir PCR (Not Detected) Influenza A (RT-PCR) (Not Detected) Influenza B (RT-PCR) (Not Detected) M. pneumoniae (PCR) (Not Detected) Parainfluen 1,2,3,4 PCR (Not Detected) RSV (PCR) (Not Detected) Entero/Rhino (PCR) (Not Detected) Jermaine Results Last 24 Hours: Microbiology 09/01/19 20:20 Aerobic Blood Culture - Preliminary Blood - Venous - Lab Draw NO GROWTH AFTER 1 DAY Anaerobic Blood Culture - Preliminary NO GROWTH AFTER 1 DAY 09/01/19 20:20 Aerobic Blood Culture - Preliminary Blood - Venous NO GROWTH AFTER 1 DAY Anaerobic Blood Culture - Preliminary NO GROWTH AFTER 1 DAY 09/01/19 20:15 Quick Strep Confirmation Culture - Preliminary Throat Group A Streptococcus Rapid Screen - Final NEGATIVE STREP A SCREEN REFERENCE RANGE: NEGATIVE Med Orders - Current: Current Medications Acetaminophen (Tylenol) 650 mg PO Q4H PRN PRN Reason: Pain (Mild 1-3)/fever Hydrocodone Bitart/Acetaminophen ([place] 325-5 Mg) 1 tab PO Q4H PRN PRN Reason: Pain (moderate 4-6) Last Admin: 09/02/19 21:13 Dose: 1 tab Albuterol/Ipratropium (Duoneb 3.0-0.5 Mg/3 Ml) 3 ml NEB Q4H PRN PRN Reason: Shortness Of Breath/wheezing Benzocaine/Menthol (Cepacol Sore Throat) 1 lozenge MUCMEM Q2HR PRN PRN Reason: Sore Throat Last Admin: 09/02/19 18:40 Dose: 1 lozenge Cephalexin (Keflex) 500 mg PO BID KENDAL Stop: 09/05/19 09:01 Last Admin: 09/02/19 21:13 Dose: 500 mg Docusate Sodium (Colace) 100 mg PO BID PRN PRN Reason: Constipation Last Admin: 09/02/19 18:39 Dose: 100 mg Hydromorphone HCl (Dilaudid) 0.25 mg IVPUSH Q2H PRN PRN Reason: Pain (severe 7-10) Promethazine HCl 6.25 mg/ (Sodium Chloride) 50.25 mls @ 100 mls/hr IV Q6H PRN PRN Reason: Nausea/Vomiting Dextrose/Lactated Ringer's (Dextrose 5%-Lactated Ringers) 1,000 mls @ 75 mls/ hr IV ASDIRECTED KENDAL Stop: 09/04/19 20:34 Last Admin: 09/02/19 21:03 Dose: 75 mls/hr Ibuprofen (Motrin) 600 mg PO Q6H PRN PRN Reason: Pain (moderate 4-6) Last Admin: 09/02/19 18:38 Dose: 600 mg Ketorolac Tromethamine (Toradol) 30 mg IV Q6H PRN PRN Reason: Pain (moderate 4-6) Last Admin: 09/01/19 20:09 Dose: 30 mg Lorazepam (Ativan) 1 mg IV Q6H PRN PRN Reason: Nausea/Vomiting Last Admin: 09/01/19 20:42 Dose: 1 mg Metoclopramide HCl (Reglan) 10 mg IVPUSH Q6H PRN PRN Reason: Nausea Last Admin: 09/01/19 20:52 Dose: 10 mg Miscellaneous Information (Remove Patch) 1 ea TRDERM Q72H [facility] Ondansetron HCl (Zofran) 4 mg IV Q6H PRN PRN Reason: Nausea/Vomiting Sodium Chloride (Saline Flush) 10 ml FLUSH ASDIRECTED PRN PRN Reason: Keep Vein Open Last Admin: 09/01/19 15:59 Dose: 10 ml Temazepam (Restoril) 15 mg PO BEDTIME PRN PRN Reason: Sleep Last Admin: 09/01/19 20:42 Dose: 15 mg Discontinued Medications Hydromorphone HCl (Dilaudid) 0.5 mg IVPUSH ONETIME ONE Stop: 09/01/19 15:46 Last Admin: 09/01/19 15:58 Dose: 0.5 mg Ceftriaxone Sodium 2 gm/ (Sodium Chloride) 100 mls @ 200 mls/hr IV Q24H KENDAL Last Admin: 09/01/19 16:51 Dose: 200 mls/hr Sodium Chloride (Normal Saline) 2,000 mls @ 1,000 mls/hr IV .BOLUS STA Stop: 09/01/19 17:42 Last Admin: 09/01/19 17:45 Dose: 1,000 mls/hr Lactated Ringer's (Ringers, Lactated) 1,000 mls @ 50 mls/hr IV ASDIRECTED KENDAL Stop: 09/02/19 14:29 Last Admin: 09/01/19 20:08 Dose: 50 mls/hr Magnesium Sulfate 2 gm/ Premix 50 mls @ 25 mls/hr IV ONETIME ONE Stop: 09/02/19 09:59 Last Admin: 09/02/19 08:39 Dose: 25 mls/hr Influenza Virus Vaccine (Pharmacy To Dose - Influenza Vaccine) 1 each IM ONETIME ONE Stop: 09/01/19 20:23 Influenza Virus Vaccine (Fluzone Quad Syringe) 60 mcg IM .ONCE ONE Stop: 09/01/19 20:46 Iopamidol (Isovue-300 (61%)) 100 ml IVPUSH ONETIME ONE Stop: 09/01/19 16:00 Last Admin: 09/01/19 16:34 Dose: 100 ml Metoclopramide HCl (Reglan) 10 mg IVPUSH ONETIME ONE Stop: 09/01/19 15:44 Last Admin: 09/01/19 15:57 Dose: 10 mg Potassium Chloride (Klor-Con M20) 60 meq PO ONETIME ONE Stop: 09/03/19 07:02 Scopolamine (Transderm-Scop) 1.5 mg TRDERM Q72H ONE Stop: 09/01/19 18:36 Last Admin: 09/01/19 20:08 Dose: 1.5 mg Sodium Chloride (Saline Flush) 10 ml FLUSH ONETIME ONE Stop: 09/01/19 16:00 Last Admin: 09/01/19 16:34 Dose: 10 ml Sepsis Event Note - Evaluation Sepsis Screening Result: No Definite Risk - Focused Exam Vital Signs: Vital Signs Temp Pulse Resp BP Pulse Ox 09/03/19 05:27 97.3 F 64 16 95/56 L 100 09/03/19 00:35 97.3 F 55 L 16 96/53 L 96 09/02/19 21:07 99.1 F 68 18 104/59 L 97 Date Exam was Performed: 09/03/19 Time Exam was Performed: 08:22 - Problem List & Annotations (1) Hypomagnesemia SNOMED Code(s): 416157461 Code(s): E83.42 - HYPOMAGNESEMIA Status: Acute Priority: High Current Visit: Yes (2) Abdominal pain SNOMED Code(s): 17469532 Code(s): R10.9 - UNSPECIFIED ABDOMINAL PAIN Status: Acute Priority: High Current Visit: Yes (3) Dehydration SNOMED Code(s): 83295904 Code(s): E86.0 - DEHYDRATION Status: Acute Priority: High Current Visit : Yes (4) Nausea and vomiting SNOMED Code(s): 84296024 Code(s): R11.2 - NAUSEA WITH VOMITING, UNSPECIFIED Status: Acute Priority : High Current Visit: Yes Qualifiers: Vomiting type: unspecified Vomiting Intractability: non-intractable Qualified Code(s): R11.2 - Nausea with vomiting, unspecified (5) UTI (urinary tract infection) SNOMED Code(s): 74338324 Code(s): N39.0 - URINARY TRACT INFECTION, SITE NOT SPECIFIED Status: Acute Priority: High Current Visit: Yes Qualifiers: Urinary tract infection type: acute cystitis Hematuria presence: without hematuria Qualified Code(s): N30.00 - Acute cystitis without hematuria (6) Weakness SNOMED Code(s): 88609811 Code(s): R53.1 - WEAKNESS Status: Acute Priority: High Current Visit: Yes (7) Viral infection SNOMED Code(s): 24365541 Code(s): B34.9 - VIRAL INFECTION, UNSPECIFIED Status: Acute Priority: High Current Visit: Yes - My Orders Last 24 Hours: My Active Orders 09/03/19 06:58 RT Incentive Spirometry [RC] Q2HWA - Plan Plan:: Acute: Generalized Weakness. Likely 2/2 Diffuse body aches. Cannot r/o Viral Illness. Unspecified Viral Illness. Respiratory viral panel, Strep (negative) Monospot ( negative), and supportive care. Hypoglycemia with BS of 71. Carries no hx/o diabetes or glucose intolerance. Likely from GI loss. Start D5LR Bacteriuria/UTI. UA from 2 days ago shows E. Coli. She received IV Rocephin in ED. Will start Keflex 500 mg po BID in AM for 3 days. Abdominal Pain with nausea and Vomiting. Could be 2/2 above but cannot r/o stomach flu. Plan: Anti-acids, clear liquid diet, Scopolamine Patch x1, and PRN anti-emetic agents. Plan: Admit for OBS. Routine AM labs. screening (negative). IVF for hydration. PRN meds for symptomatic control. Monitor electrolytes abnormality. Fall precautions. Code status is full.
[2019-09-03] MEDS: Cephalexin 500 MG Cap PO SCH (08:39)
[2019-09-03] MEDS: Dextrose 5%-Lactated Ringers 1,000 ML IV SCH (10:10)
--- NOTE | 2019-09-03 11:45 | PCM.DCSUM1 ---
Discharge Summary - Hospital Course HPI Initial Comments: This is a healthy 24 yo white female who presented to ED with complaints of Abdominal pain associated with nausea and vomiting. She was initially evaluated in ED a couple of days ago with benign work up and was diagnosed with dehydration and now UTI. She was treated with Zofran and sent but she did not do well home. She comes back today with body aches and chills and persisted nausea and vomiting. Her UA taken 2 days ago shows E. coli. Her initial work up in ED shows a fairly unremarkable CBC. Her Chemistry is significant for AG of 20.5, BS of 71, and CRP of 1.4. Lipase and LA are both wnl. Abdominal/Pelvis CT scan report read as no abnormality is appreciated. Patient received initial treatment in ED but she remains sick and weak. She is coming for further management. Diagnosis: Stroke: No - Discharge Data Discharge Date: 09/03/19 (Admit date: 09/01/18) Discharge Disposition: Home, Self-Care 01 Condition: Good - Referral to Home Health Primary Care Physician: PCP None - Discharge Diagnosis/Problem(s) (1) Hypomagnesemia SNOMED Code(s): 641643691 ICD Code: E83.42 - HYPOMAGNESEMIA Status: Resolved Priority: High Current Visit: Yes (2) Abdominal pain SNOMED Code(s): 84347240 ICD Code: R10.9 - UNSPECIFIED ABDOMINAL PAIN Status: Resolved Priority: High Current Visit: Yes (3) Dehydration SNOMED Code(s): 02559926 ICD Code: E86.0 - DEHYDRATION Status: Resolved Priority: High Current Visit: Yes (4) Nausea and vomiting SNOMED Code(s): 69579885 ICD Code: R11.2 - NAUSEA WITH VOMITING, UNSPECIFIED Status: Resolved Priority: High Current Visit: Yes Qualifiers: Vomiting type: unspecified Vomiting Intractability: non-intractable Qualified Code(s): R11.2 - Nausea with vomiting, unspecified (5) UTI (urinary tract infection) SNOMED Code(s): 05942778 ICD Code: N39.0 - URINARY TRACT INFECTION, SITE NOT SPECIFIED Status: Acute Priority: High Current Visit: Yes Qualifiers: Urinary tract infection type: acute cystitis Hematuria presence: without hematuria Qualified Code(s): N30.00 - Acute cystitis without hematuria (6) Weakness SNOMED Code(s): 68782121 ICD Code: R53.1 - WEAKNESS Status: Acute Priority: High Current Visit: Yes (7) Hypokalemia SNOMED Code(s): 61549442 ICD Code: E87.6 - HYPOKALEMIA Status: Acute Priority: High Current Visit: Yes (8) Influenza B SNOMED Code(s): 51002920 ICD Code: J10.1 - FLU DUE TO OTH IDENT INFLUENZA VIRUS W OTH RESP MANIFEST Status: Acute Priority: High Current Visit: Yes - Patient Summary/Data Consults: Consultations 09/01/19 18:28 Consult to Case Management/Space Planner [CONS] Routine Labs Pending at D/C: Parovirus B19 Recommended Follow-up Testing/Procedures: Follow-up with PCP within 5-7 days of discharge, sooner if needed. Hospital Course: Mely was admitted to the floor for failed outpatient treatment of a UTI, nausea and vomiting, and weakness. She was started on p.o. Keflex and given the severity of her symptoms further work-up was initiated. Respiratory viral panel returned positive for influenza B. Unfortunately due to timing of onset of symptoms she is outside the window for Tamiflu treatment. She was given IV fluids and was noted to be hypoglycemic at times secondary to not eating. She was switched to D5 NS and as she improves she began to eat more. She was given an incentive monitor and used it. Monoscreen was negative. Star virus B19 is still pending. Rapid strep was negative. Blood cultures were negative. Her diet was advanced without incident and her nausea and vomiting did resolve. Her labs remained stable and she reports she was feeling better today. She was advised that she will likely not feel 100% for some time and that this is a viral illness that will need to run its course. She was encouraged to stay hydrated. 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 She was told to continue to stay home from work if she still feels sick at that time. She was told to avoid the extremes of age and immunocompromise patients until she is feeling better. She was advised to turn to the emergency room, or contact her primary care provider or walk-in clinic should her symptoms worsen. She was given a prescription for 2 more days of p.o. Keflex and a Zofran prescription was renewed for her as she was quite concerned about if her nausea should return. She was discharged today. - Patient Instructions Diet: Usual Diet as Tolerated Activity: As Tolerated Driving: Do Not Drive (today) Showering/Bathing: May Shower Notify Provider of: Fever, Increased Pain, Nausea and/or Vomiting Other/Special Instructions: Follow-up with primary care provider within 5-7 days of discharge, sooner if needed. Stay hydrated and push fluids. Drink plenty of water. Recommend occasional sugar free sports drink like gatoraid to keep electrolytes up. Continue to utilize your incentive spirometry (Clear/ blue device you exhale through) until your symtpoms completely resolve. May return to work on 09/09/18 if you are feeling better. If you continue to feel poor stay away from work. You have a viral infection (Influenza B). Unfortunately antibioitics will not help this and you were outside the window for the antiviral. This will take some time to work out of your system but should get better as the days go by. Avoid being around young children, older adults, or immunocompromised individuals. Continue taking your antibiotic for your UTI until you run out, even if you fell 100% better. Should symptoms return or worsen contact your primary care provider, a walk-in clinic, or the Emergency Department. - Discharge Plan *PRESCRIPTION DRUG MONITORING PROGRAM REVIEWED*: No *COPY OF PRESCRIPTION DRUG MONITORING REPORT IN PATIENT NATACHA: No Prescriptions/Med Rec: cephALEXin [Keflex] 500 mg PO BID #2 cap Ondansetron [Zofran ODT] 4 mg PO Q6H PRN #16 tab.dis PRN Reason: Nausea\vomiting Home Medications: Home Meds Acetaminophen [Tylenol] 500 mg PO Q4HR PRN 09/01/19 [History] Ondansetron [Zofran ODT] 4 mg PO Q6H PRN #16 tab.dis 09/03/19 [Rx] cephALEXin [Keflex] 500 mg PO BID #2 cap 09/03/19 [Rx] Oxygen Therapy Mode: Room Air Patient Handouts: Influenza, Adult, [id number], Urinary Tract Infection, Adult, [id number], Sepsis, Adult Referrals: Mamie Brar MD [Ordering Only Provider] - 09/16/19 8:00 am (Please follow up with Dr. Brar on September 16 at 8 am. ) - Discharge Summary/Plan Comment DC Time >30 min.: Yes (45 mins) - General Info Date of Service: 09/03/19 Admission Dx/Problem (Free Text: Abdominal Pain with Nausea and Vomiting Functional Status: Reports: Pain Controlled, Tolerating Diet, Ambulating, Urinating, Incentive Spirometry. Denies: New Symptoms - Review of Systems General: Reports: Weakness (improved ), Fatigue (improved ), Malaise (improved ) . Denies: Fever, Chills HEENT: Reports: Sinus Congestion. Denies: Headaches, Sore Throat Pulmonary: Reports: No Symptoms, Cough. Denies: Shortness of Breath, Pleuritic Chest Pain, Sputum, Wheezing Cardiovascular: Reports: No Symptoms. Denies: Chest Pain, Palpitations, Edema Gastrointestinal: Reports: No Symptoms. Denies: Abdominal Pain, Constipation, Diarrhea, Nausea, Vomiting Genitourinary: Reports: No Symptoms. Denies: Pain Musculoskeletal: Reports: No Symptoms Skin: Reports: No Symptoms. Denies: Cyanosis Neurological: Reports: No Symptoms. Denies: Confusion Psychiatric: Reports: No Symptoms - Patient Data Vitals - Most Recent: Last Vital Signs Temp 97.5 F 09/03/19 08:38 Pulse 59 L 09/03/19 08:38 Resp 16 09/03/19 05:27 BP 102/82 09/03/19 08:38 Pulse Ox 100 09/03/19 08:38 Orthostatic Blood Pressure [ 118/79 Standing] Orthostatic Blood Pressure [ 116/85 Sitting] Orthostatic Blood Pressure [ 119/75 Supine] Weight - Most Recent: 133 lb 4.8 oz I&O - Last 24 hours: Intake & Output 09/02/19 09/03/19 09/03/19 22:59 06:59 14:59 Intake Total 1376 1100 200 Output Total 1200 Balance 176 1100 200 Lab Results - Last 24 hrs: Laboratory Results - last 24 hr 09/01/19 09/02/19 09/02/19 Range/Units 20:15 12:57 18:20 WBC (3.98-10.04) K/mm3 RBC (3.98-5.22) M/mm3 Hgb (11.2-15.7) gm/dl Hct (34.1-44.9) % MCV (79.4-94.8) fl MCH (25.6-32.2) pg MCHC (32.2-35.5) g/dl RDW Std Deviation (36.4-46.3) fL Plt Count (182-369) K/mm3 MPV (9.4-12.3) fl Neut % (Auto) (34.0-71.1) % Lymph % (Auto) (19.3-51.7) % [place] % (Auto) (4.7-12.5) % Eos % (Auto) (0.7-5.8) Baso % (Auto) (0.1-1.2) % Neut # (Auto) (1.56-6.13) K/mm3 Lymph # (Auto) (1.18-3.74) K/mm3 [place] # (Auto) (0.24-0.36) K/mm3 Eos # (Auto) (0.04-0.36) K/mm3 Baso # (Auto) (0.01-0.08) K/mm3 Manual Slide Review Sodium (136-145) mEq/L Potassium (3.5-5.1) mEq/L Chloride (98-107) mEq/L Carbon Dioxide (21-32) mEq/L Anion Gap (5-15) BUN (7-18) mg/dL Creatinine (0.55-1.02) mg/dL Est Cr Clr Drug Dosing mL/min Estimated GFR (MDRD) (>60) mL/min BUN/Creatinine Ratio (14-18) Glucose (74-106) mg/dL POC Glucose 92 178 H (70-105) mg/dL Calcium (8.5-10.1) mg/dL Magnesium (1.8-2.4) mg/dl C-Reactive Protein (<1.0) mg/dL Adenovirus (PCR) Not detected (Not Detected) B. pertussis DNA (PCR) Not detected (Not Detected) B.parapertussis DNA PCR Not detected (Not Detected) C. pneumoniae DNA (PCR) Not detected (Not Detected) Coronavirus (PCR) Not detected (Not Detected) Human Metapneumovir PCR Not detected (Not Detected) Influenza A (RT-PCR) Not detected (Not Detected) Influenza B (RT-PCR) Detected H (Not Detected) M. pneumoniae (PCR) Not detected (Not Detected) Parainfluen 1,2,3,4 PCR Not detected (Not Detected) RSV (PCR) Not detected (Not Detected) Entero/Rhino (PCR) Not detected (Not Detected) 09/03/19 09/03/19 09/03/19 Range/Units 00:33 05:13 05:13 WBC 3.16 L (3.98-10.04) K/mm3 RBC 4.50 (3.98-5.22) M/mm3 Hgb 13.2 (11.2-15.7) gm/dl Hct 37.4 (34.1-44.9) % MCV 83.1 (79.4-94.8) fl MCH 29.3 (25.6-32.2) pg MCHC 35.3 (32.2-35.5) g/dl RDW Std Deviation 36.9 (36.4-46.3) fL Plt Count 219 (182-369) K/mm3 MPV 9.9 (9.4-12.3) fl Neut % (Auto) 14.3 L (34.0-71.1) % Lymph % (Auto) 69.3 H (19.3-51.7) % [place] % (Auto) 13.0 H (4.7-12.5) % Eos % (Auto) 2.5 (0.7-5.8) Baso % (Auto) 0.9 (0.1-1.2) % Neut # (Auto) 0.45 L (1.56-6.13) K/mm3 Lymph # (Auto) 2.19 (1.18-3.74) K/mm3 [place] # (Auto) 0.41 H (0.24-0.36) K/mm3 Eos # (Auto) 0.08 (0.04-0.36) K/mm3 Baso # (Auto) 0.03 (0.01-0.08) K/mm3 Manual Slide Review Abnormal smear Sodium 141 (136-145) mEq/L Potassium 3.2 L (3.5-5.1) mEq/L Chloride 107 (98-107) mEq/L Carbon Dioxide 26 (21-32) mEq/L Anion Gap 11.2 (5-15) BUN 5 L (7-18) mg/dL Creatinine 0.7 (0.55-1.02) mg/dL Est Cr Clr Drug Dosing 90.55 mL/min Estimated GFR (MDRD) > 60 (>60) mL/min BUN/Creatinine Ratio 7.1 L (14-18) Glucose 111 H (74-106) mg/dL POC Glucose 96 (70-105) mg/dL Calcium 8.4 L (8.5-10.1) mg/dL Magnesium 1.8 (1.8-2.4) mg/dl C-Reactive Protein 1.0 (<1.0) mg/dL Adenovirus (PCR) (Not Detected) B. pertussis DNA (PCR) (Not Detected) B.parapertussis DNA PCR (Not Detected) C. pneumoniae DNA (PCR) (Not Detected) Coronavirus (PCR) (Not Detected) Human Metapneumovir PCR (Not Detected) Influenza A (RT-PCR) (Not Detected) Influenza B (RT-PCR) (Not Detected) M. pneumoniae (PCR) (Not Detected) Parainfluen 1,2,3,4 PCR (Not Detected) RSV (PCR) (Not Detected) Entero/Rhino (PCR) (Not Detected) 09/03/19 Range/Units 06:16 WBC (3.98-10.04) K/mm3 RBC (3.98-5.22) M/mm3 Hgb (11.2-15.7) gm/dl Hct (34.1-44.9) % MCV (79.4-94.8) fl MCH (25.6-32.2) pg MCHC (32.2-35.5) g/dl RDW Std Deviation (36.4-46.3) fL Plt Count (182-369) K/mm3 MPV (9.4-12.3) fl Neut % (Auto) (34.0-71.1) % Lymph % (Auto) (19.3-51.7) % [place] % (Auto) (4.7-12.5) % Eos % (Auto) (0.7-5.8) Baso % (Auto) (0.1-1.2) % Neut # (Auto) (1.56-6.13) K/mm3 Lymph # (Auto) (1.18-3.74) K/mm3 [place] # (Auto) (0.24-0.36) K/mm3 Eos # (Auto) (0.04-0.36) K/mm3 Baso # (Auto) (0.01-0.08) K/mm3 Manual Slide Review Sodium (136-145) mEq/L Potassium (3.5-5.1) mEq/L Chloride (98-107) mEq/L Carbon Dioxide (21-32) mEq/L Anion Gap (5-15) BUN (7-18) mg/dL Creatinine (0.55-1.02) mg/dL Est Cr Clr Drug Dosing mL/min Estimated GFR (MDRD) (>60) mL/min BUN/Creatinine Ratio (14-18) Glucose (74-106) mg/dL POC Glucose 101 (70-105) mg/dL Calcium (8.5-10.1) mg/dL Magnesium (1.8-2.4) mg/dl C-Reactive Protein (<1.0) mg/dL Adenovirus (PCR) (Not Detected) B. pertussis DNA (PCR) (Not Detected) B.parapertussis DNA PCR (Not Detected) C. pneumoniae DNA (PCR) (Not Detected) Coronavirus (PCR) (Not Detected) Human Metapneumovir PCR (Not Detected) Influenza A (RT-PCR) (Not Detected) Influenza B (RT-PCR) (Not Detected) M. pneumoniae (PCR) (Not Detected) Parainfluen 1,2,3,4 PCR (Not Detected) RSV (PCR) (Not Detected) Entero/Rhino (PCR) (Not Detected) OBINNA Results - Last 24 hrs: Microbiology 09/01/19 20:20 Aerobic Blood Culture - Preliminary Blood - Venous - Lab Draw NO GROWTH AFTER 1 DAY Anaerobic Blood Culture - Preliminary NO GROWTH AFTER 1 DAY 09/01/19 20:20 Aerobic Blood Culture - Preliminary Blood - Venous NO GROWTH AFTER 1 DAY Anaerobic Blood Culture - Preliminary NO GROWTH AFTER 1 DAY 09/01/19 20:15 Quick Strep Confirmation Culture - Preliminary Throat Group A Streptococcus Rapid Screen - Final NEGATIVE STREP A SCREEN REFERENCE RANGE: NEGATIVE Med Orders - Current: Current Medications Acetaminophen (Tylenol) 650 mg PO Q4H PRN PRN Reason: Pain (Mild 1-3)/fever Hydrocodone Bitart/Acetaminophen ([place] 325-5 Mg) 1 tab PO Q4H PRN PRN Reason: Pain (moderate 4-6) Last Admin: 09/02/19 21:13 Dose: 1 tab Albuterol/Ipratropium (Duoneb 3.0-0.5 Mg/3 Ml) 3 ml NEB Q4H PRN PRN Reason: Shortness Of Breath/wheezing Benzocaine/Menthol (Cepacol Sore Throat) 1 lozenge MUCMEM Q2HR PRN PRN Reason: Sore Throat Last Admin: 09/02/19 18:40 Dose: 1 lozenge Cephalexin (Keflex) 500 mg PO BID [facility] Stop: 09/05/19 09:01 Last Admin: 09/03/19 08:39 Dose: 500 mg Docusate Sodium (Colace) 100 mg PO BID PRN PRN Reason: Constipation Last Admin: 09/02/19 18:39 Dose: 100 mg Hydromorphone HCl (Dilaudid) 0.25 mg IVPUSH Q2H PRN PRN Reason: Pain (severe 7-10) Promethazine HCl 6.25 mg/ (Sodium Chloride) 50.25 mls @ 100 mls/hr IV Q6H PRN PRN Reason: Nausea/Vomiting Dextrose/Lactated Ringer's (Dextrose 5%-Lactated Ringers) 1,000 mls @ 75 mls/ hr IV ASDIRECTED [facility] Stop: 09/04/19 20:34 Last Admin: 09/03/19 10:10 Dose: 75 mls/hr Ibuprofen (Motrin) 600 mg PO Q6H PRN PRN Reason: Pain (moderate 4-6) Last Admin: 09/02/19 18:38 Dose: 600 mg Ketorolac Tromethamine (Toradol) 30 mg IV Q6H PRN PRN Reason: Pain (moderate 4-6) Last Admin: 09/01/19 20:09 Dose: 30 mg Metoclopramide HCl (Reglan) 10 mg IVPUSH Q6H PRN PRN Reason: Nausea Last Admin: 09/01/19 20:52 Dose: 10 mg Miscellaneous Information (Remove Patch) 1 ea TRDERM Q72H [facility] Ondansetron HCl (Zofran) 4 mg IV Q6H PRN PRN Reason: Nausea/Vomiting Sodium Chloride (Saline Flush) 10 ml FLUSH ASDIRECTED PRN PRN Reason: Keep Vein Open Last Admin: 09/01/19 15:59 Dose: 10 ml Temazepam (Restoril) 15 mg PO BEDTIME PRN PRN Reason: Sleep Last Admin: 09/01/19 20:42 Dose: 15 mg Discontinued Medications Hydromorphone HCl (Dilaudid) 0.5 mg IVPUSH ONETIME ONE Stop: 09/01/19 15:46 Last Admin: 09/01/19 15:58 Dose: 0.5 mg Ceftriaxone Sodium 2 gm/ (Sodium Chloride) 100 mls @ 200 mls/hr IV Q24H KENDAL Last Admin: 09/01/19 16:51 Dose: 200 mls/hr Sodium Chloride (Normal Saline) 2,000 mls @ 1,000 mls/hr IV .BOLUS STA Stop: 09/01/19 17:42 Last Admin: 09/01/19 17:45 Dose: 1,000 mls/hr Lactated Ringer's (Ringers, Lactated) 1,000 mls @ 50 mls/hr IV ASDIRECTED KENDAL Stop: 09/02/19 14:29 Last Admin: 09/01/19 20:08 Dose: 50 mls/hr Magnesium Sulfate 2 gm/ Premix 50 mls @ 25 mls/hr IV ONETIME ONE Stop: 09/02/19 09:59 Last Admin: 09/02/19 08:39 Dose: 25 mls/hr Influenza Virus Vaccine (Pharmacy To Dose - Influenza Vaccine) 1 each IM ONETIME ONE Stop: 09/01/19 20:23 Influenza Virus Vaccine (Fluzone Quad [id number] Syringe) 60 mcg IM .ONCE ONE Stop: 09/01/19 20:46 Iopamidol (Isovue-300 (61%)) 100 ml IVPUSH ONETIME ONE Stop: 09/01/19 16:00 Last Admin: 09/01/19 16:34 Dose: 100 ml Lorazepam (Ativan) 1 mg IV Q6H PRN PRN Reason: Nausea/Vomiting Last Admin: 09/01/19 20:42 Dose: 1 mg Metoclopramide HCl (Reglan) 10 mg IVPUSH ONETIME ONE Stop: 09/01/19 15:44 Last Admin: 09/01/19 15:57 Dose: 10 mg Potassium Chloride (Klor-Con M20) 60 meq PO ONETIME ONE Stop: 09/03/19 07:02 Last Admin: 09/03/19 08:40 Dose: 60 meq Scopolamine (Transderm-Scop) 1.5 mg TRDERM Q72H ONE Stop: 09/01/19 18:36 Last Admin: 09/01/19 20:08 Dose: 1.5 mg Sodium Chloride (Saline Flush) 10 ml FLUSH ONETIME ONE Stop: 09/01/19 16:00 Last Admin: 09/01/19 16:34 Dose: 10 ml - Exam Quality Assessment: Reports: DVT Prophylaxis General: Reports: Alert, Oriented, Cooperative, No Acute Distress HEENT: Reports: Pupils Equal, Pupils Reactive, Mucous Membr. Moist/[place] Neck: Reports: Supple Lungs: Reports: Clear to Auscultation, Normal Respiratory Effort Cardiovascular: Reports: Regular Rate, Regular Rhythm GI/Abdominal Exam: Normal Bowel Sounds, Soft, Non-Tender, No Distention, No Abnormal Bruit (Female) Exam: Deferred Rectal (Female) Exam: Deferred Back Exam: Reports: Normal Inspection, Full Range of Motion Extremities: Normal Inspection, Normal Range of Motion, Non-Tender, No Pedal Edema, Normal Capillary Refill Skin: Reports: Warm, Dry, Intact Neurological: Reports: No New Focal Deficit Psy/Mental Status: Reports: Alert, Normal Affect, Normal Mood
== END 2019-09-03 14:46 | disposition home or self-care (01) ==
LOC: JD.ED 14:43 → JD.MS 18:39
PROVIDERS: ADMIT Internal Medicine; ATTEND Internal Medicine
DX: N30.00 Acute cystitis without hematuria (principal); B96.20 Unspecified Escherichia coli [E. coli] as the cause of diseases classified elsewhere; J10.1 Influenza due to other identified influenza virus with other respiratory manifestations; E16.2 Hypoglycemia, unspecified; E83.42 Hypomagnesemia; E87.6 Hypokalemia; E86.0 Dehydration; Z23 Encounter for immunization
CPT/HCPCS: 36415; 74177; 80048; 80053; 81001; 81025; 82962; 83605; 83690; 83735; 85025; 86140; 86308; 86747; 87040; 87081; 87430; 87486; 87581; 87632; 87798; 90471; 96361; 96365; 96375; 99285; A9270; J0696; J1170; J1885; J2060; J2765; J3475; J7030; J7050; J7120; J7121; Q9967; 90686; 96366; 96367; 96376; 99217; 99219; 99225; 99284; G0008; G0378